=== PATIENT | female | born 1955 | race Caucasian/White ===

== ENCOUNTER → 2021-03-02 05:05 | Outpatient (CLI) | payer MEDICARE, MEDICAID, SELFPAY ==
[2021-03-02 19:23] LABS: SARS-CoV-2 RNA PCR Negative
== END ==
PROVIDERS: PCP Family Medicine; Visit Provider Internal Medicine Critical Care Medicine
DX: Z01.812 Encounter for preprocedural laboratory examination (principal); Z20.822 Contact with and (suspected) exposure to COVID-19
CPT/HCPCS: C9803; U0003; U0005

== ENCOUNTER 2021-03-05 09:00 | Outpatient (CLI) | payer MEDICARE, MEDICAID, SELFPAY ==
--- NOTE | 2021-03-19 14:44 | WPDSLEEPSTUD ---
Sleep Study Date of Study: 03/05/21 Ordering Provider: Radha Vieyra MD Interpreting Physician: Radha Vieyra MD Sleep Study Type: Polysomnogram Height: 1.57 m Weight: 165.561 kg Body Mass Index: 66.7 Neck Circumference (inches): 22.5 [place]: 7 Reason for Sleep Study history of ABY on CPAP, BiPAP; with poor tolerance 07/21/2002- BiPAP titration; optimal pressure 13/6 03/15/2002 - CPAP titration 13 cm 01/14/2002 - Basic study; RDI 38.9, minimum saturation 58%; BMI was 56.6. Sleep History Rosalinda Gant is a 65 year old female with a history of obstructive sleep apnea syndrome with poor tolerance for CPAP and BiPAP. Her main problem in her own words is her poorly functioning thyroid. She reports having gained a massive amount of weight. Her BMI is 66.8, higher than in 2001 when it was 56.6. In her questionnaire, she says that her doctors did not address the weight gain, instead placing her on levothyroxine with a decrease in her TSH but did not treat the underlying problem so she now says that she cannot lie flat in bed. For 30 years, she has slept upright in a recliner. She feels that she could often used a nap but does not always choose to take a nap. She says that she could not handle wearing CPAP or BiPAP. She does not awaken from sleep feeling short of breath. She does not awaken at night with heartburn, belching or coughing. She frequently snores and is constantly loud enough that others complain about it. She does not have trouble sleep with a cold, does not gasp for breath at night does not have breathing problems at night observed by others. She does not sweat excessively at night. She does not notice her heart pounding or beating irregularly at night. She rarely falls asleep during the day, never involuntarily, and never while driving. She does not fall asleep while exerting physical effort. there is no loss of muscle tone was strong emotion. There is no time date difficulty due to excessive sleepiness, she is her disabled. She does not feel paralyzed on waking or falling asleep. She rarely has vivid dreamlike scenes upon awakening or falling asleep. She does not feel afraid to go to sleep. She rarely has nightmares. She occasionally remembers her dreams. She frequently has racing thoughts, frequently feels sad, depressed, and anxious. Frequently she has muscular tension. She rarely notices parts of her body jerking. She rarely kicks at night and rarely has crawling or aching feelings in her legs at night. She occasionally has leg pain during the night. She does not have morning jaw pain. She constantly is bothered by pain during the day rarely is awakened by pain at night. She constantly wakes up feeling stiff in the morning, Frequently with sore or achy muscles and occasionally with pain in the spine and neck. She has concentration difficulties, memory problems, headaches, and depression. She takes sedatives. Normal bedtime is between 10:00 p.m. and 11:00 p.m. falling asleep within 30 minutes. She wakes during the night to use the bathroom. She wakes in the morning at 7:00 a.m.. On the weekends she may stay awake until midnight and wake at 8:00 a.m. She occasionally takes a nap and sometimes a short nap is refreshing. Habits: She quit tobacco 21 years ago. Caffeine 2 cups a day. No alcohol or recreational drugs. [facility] Past Medical History Medical History BMI 60.0-69.9, adult (~08/2014) CHF (congestive heart failure) Chronic venous stasis dermatitis of both lower extremities (~1999) Depression (~06/19/12) Dyslipidemia Essential tremor FH ischemic heart disease Mother had bypass surgery @ 78 y/o Generalized osteoarthrosis, involving multiple sites (~05/2012) History of endometritis (~1967) Impaired mobility and endurance (~04/01/13) electric w/c since 1999 per 10/10/2011 [facility] record Lymphedema of both lower extremities ABY (obstructive sleep apnea) P
[2021-03-19 15:43] VITALS: BMI 66.7
== END 2021-03-05 09:01 | disposition home or self-care (01) ==
LOC: ANHCSM 09:02
PROVIDERS: PCP Family Medicine; Visit Provider Internal Medicine Critical Care Medicine
DX: G47.33 Obstructive sleep apnea (adult) (pediatric) (principal); G47.34 Idiopathic sleep related nonobstructive alveolar hypoventilation
CPT/HCPCS: 95810

== ENCOUNTER 2021-09-07 09:16 | Outpatient (CLI) | payer MEDICARE, MEDICAID, SELFPAY ==
--- NOTE | 2021-09-07 10:09 | PCCARD ---
PATIENT ALIZA STANLEY HAD A APPOINTMENT ON 09/07/21 FOR A ECHOCARDIOGRAM. PATIENT ARRIVED IN A WHEELCHAIR. TOLD PATIENT WE WOULD NEED HER TO LAY DOWN ON STRETCHER FOR PROCEDURE. SHE TOLD US SHE COULD NOT DO SO BECAUSE SHE WOULD NOT BE ABLE TO BREATHE. TRIED TO DO PATIENTS ECHO WITH HER SITTING IN HER WHEELCHAIR. UNSUCCESSFUL ATTEMPT. TEXTED DR. HALL AND TOLD HIM OUTCOME OF TEST AND THAT WE CANCELLED PROCEDURE. HE SAID OK.
== END 2021-09-07 09:17 | disposition home or self-care (01) ==
PROVIDERS: PCP Family Medicine; Visit Provider Internal Medicine Cardiovascular Disease
DX: I50.9 Heart failure, unspecified (principal)
CPT/HCPCS: 99199

== ENCOUNTER 2021-09-26 09:15 | Outpatient (RCR) | payer MEDICARE, MEDICAID, SELFPAY ==
--- NOTE | 2021-07-04 10:08 | PTOPEVAL ---
PHYSICAL THERAPY EVALUATION AND PLAN OF CARE 07-04-21 Thank you for referring Rosalinda Gant to [facility].? She is scheduled to be seen for therapy? 3 x/week for 6 weeks. Please review, sign, date and return this plan of care GRETA. I agree with and certify that the following plan of care is medically necessary. Referring Physician Date Attending Provider: Ruth Miramontes MD *PT Outpatient Evaluation Document 07/04/21 08:55 ALLISON (Rec: 07/04/21 10:08 ALLISON [id number]) Outpatient Past Medical History Past Medical History Source of Past Medical History Patient Neurological History Hx Neurological Disorders No Significant History Cardiovascular History Hx Congestive Heart Failure Yes: meds Hx Hypercholesterolemia Yes: meds Hx Hypertension Yes: meds Respiratory History Hx Emphysema Yes: previous smoker; nebulizer and inhalers PRN Hx Other Respiratory Disorders Yes: cannot lie flat, have to sleep in recliner Gastrointestinal History Hx Cholecystectomy Yes Hx Gastric Bypass Surgery Yes: gastric sleeve; Hx Hernia Yes: surgery Genitourinary History Hx Other Genitourinary Disorders Yes: take diuretic for bladder /incontinent at time Musculoskeletal History Hx Arthritis Yes: throughout entire body- RA and OA in all joints,use w/ c due to this Endocrine History Hx Diabetes Yes: prediabetic on meds Hx Hypothyroidism Yes: meds HEENT History Hx Other HEENT Disorders Yes: sinus infections with weather changes, nose bleeds, Integumentary History Hx Other Skin Disorders Yes: chronic venous stasis dermitis both legs Reproductive History Hx Hysterectomy Yes: due to cancer, surgery only-no other treatment Other History Hx Cancer Yes: hysterectomy due to cancer Hx Other Medical Conditions Yes: 360# and height 5'2 Evaluation Information Problem Diagnosis B LE lymphedema Onset Oct 2020 Prior Level of Function Activity Level (Last 3 Months) Occupation disabled Activity of Daily Living Ability Needs Some Help Home Setting Environmental Barriers Ramp Living Situation Alone Support Available Hired Assistance Mobility Assistive Devices (Used Last 3 Wheelchair, Manual,Wheelchair, Months) Motorized Comments Additional Prior Level of Function have helper for assist with Comments bathing, dressing, home
--- NOTE | 2021-07-16 08:54 | PCPTNOTE ---
pt did not show for today's appt; I called her, she stated she did not feel well and did not have transportation to get here. Stated she did not have rides for this week set up yet--this week's appt canceled. Discussed [facility] or other public transportation to get to dept. She stated she will contact [facility] and try to come in next week. Discussed with her she needs to call and cancel if she is not able to come in. She stated she would call and let us know.
--- NOTE | 2021-08-01 10:34 | PCPTNOTE ---
pt called and canceled today's appt due to not feeling well.
--- NOTE | 2021-08-07 10:27 | PCPTNOTE ---
pt did not show for today's appointment; called pt and left a voice message for her;
--- NOTE | 2021-08-20 11:34 | PTOPEVAL ---
PHYSICAL THERAPY REEVALUATION AND UPDATED PLAN OF CARE 08-20-21 Refer to the clinical summary below for her status today, compared to the initial evaluation. Continue PT 3x/wk for 5 weeks. Thank you for referring Rosalinda Gant to [facility].? Please review, sign, date and return this updated plan of care [facility]. I agree with and certify that the following plan of care is medically necessary. Referring Physician Date Attending Provider: Ruth Miramontes MD Document 08/20/21 09:05 ALLISON (Rec: 08/20/21 10:04 ALLISON [id number]) Assessment Status Re-evaluation Pain Assessment Pain Scale Pain Scale Used Numeric (1 - 10) Self Report Pain Assessment Bilateral Leg(s) Reported Pain Level 5 Pain Description Aching,Burning,Shooting, Soreness Pain Frequency Chronic,Continuous Pain Score Pain Score 5: Self Report Interventions Used Interventions Used By Clinicians Education Lower Extremity Muscle Strength Testing General Lower Extremity Strength Gross Lower Extremity Strength -supine SLR R 10 /L 10 reps- due to pain in hip and back; hip abduction R 15/ L 7 reps -sit/stand pivot transfer indep, with increased time, labored and increased pain in back, unable to stand upright, trunk not extended; - supine/sit transfer indep, labored and increased time due to back and hip pain Lymphedema Evaluation Skin Inspection Location Left Lower Extremity,Right Lower Extremity Skin Observations Absence of Leg Hair,Dorsum Foot Swelling,Hyperkeratosis, Hyperpigmentation,Hyperplasia, Lipedema,Papillomas,Swollen, Squared off Toes Palpation Findings Cool Skin Temperature,Negative Stemmer Sign Tissue Texture Hard Lymphedema Stage II Skin Inspection Comment R LE: thigh with medial- distal thigh lobule, minimal redness, minimal papillomas lower leg with minimal redness over lower 1/2 of lower leg, medium redness over toes and dorsum of foot with minimal edema; minimal dry, flaking skin; small ridge of fibrotic tissue over distal- medial
--- NOTE | 2021-08-31 07:40 | PCPTNOTE ---
Pt called and stated she had a headache so bad she could not come in today for her appt . I told her I would let PT Sparkle know when she comes in and she will call her if needed to clarify any instructions for the weekend.
--- NOTE | 2021-08-31 11:55 | PCPTNOTE ---
pt called and canceled today's appt due to not feeling well--has not slept;
--- NOTE | 2021-09-03 12:53 | PCPTNOTE ---
PHYSICAL THERAPY PROGRESS REPORT 09-03-21 Ms. Gant has received a total of 17 PT sessions for B LE lymphedema, from July 04 to today. With today's circumferential measurements of her legs, from the bottom of her foot to 60 cm: R is 1005.5 cm and L is 993.9. Compared to the initial evaluation: R has increased by 3 cm and L has increased by 23.8 cm. During the course of her treatments, the measurements have varied, with the R down to 977.0 cm and L down to 970 cm. Her skin integrity has improved with the R LE- decreased dorsum of foot swelling, decreased redness, papillomas and fibrosis over lower leg, but continues to have fibrotic tissue over medial thigh. The L LE continues to have redness over dorsum of foot, lower leg,with papillomas.. The medial thigh has fibrotic tissue. She has been educated on lymphedema care, skin care, self manual lymph drainage and compression garments. A home intermittent compression pump has been delivered to her home and she is going to have education from [facility] for the use of it, later today. Rosalinda had multi-layer compression wraps on her R lower leg and has just obtained a compression garment for her R lower leg and foot. Today she was educated on its' application and use. Her family will assist her with it, because she cannot reach her lower leg and foot. Compression wraps will be initiated next week for her L lower leg. Continue PT services for lymphedema care: to reduce her L lower leg, obtain compression garment for her L LE and complete education for discharge and independent with care for her LE lymphedema, 3x/week for 3 weeks. Sparkle Jorge, PT, CLT
--- NOTE | 2021-09-03 13:05 | PCPTNOTE ---
canceled appointments for this week- Fri and . Pt is not able to make it here Fri due to having an ECHO scheduled. Wraps were not able to be initiated today for her L LE, per pt refusal, then if wrap her leg , she will not be able to maintain the wraps on her leg until Fri, so it is not feasible to have treatment for the remainder of this week. pt is to continue to to self MLD, has home intermittent compression pump now and compression garment for R LE. She is also to look into obtaining a compression bike short/caity. She wants to get an over the counter garment.
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
--- NOTE | 2021-09-24 10:47 | PTOPEVAL ---
PHYSICAL THERAPY RE-EVALUATION AND UPDATED PLAN OF CARE 09-24-21 Refer to the clinical summary below for her status today, compared to the last reevaluation. She continues to have issues with her leg strength and mobility due to back pain, leg pain, lymphedema over both legs and shortness of breath. Strength goals were not achieved. The goals were partially met for lymphedema--decreased redness and fibrotic tissue. PT is to continue 3x/wk for 3 weeks, to complete the wraps for her L lower leg and for her to obtain the compression garments for her L lower leg and foot, and the capris for thighs. Thank you for referring Rosalinda Gant to [facility].? Please review, sign, date and return this updated plan of care [facility]. I agree with and certify that the following plan of care is medically necessary. Referring Physician Date Attending Provider: Ruth Miramontes MD Document 09/24/21 08:45 ALLISON (Rec: 09/24/21 10:06 ALLISON [id number]) Assessment Status Re-evaluation Subjective Information Rosalinda reports: legs are Query Text:As Reported By Patient/ smaller in size; continue to Family have pain in legs and weakness in legs, can barely take any steps at home anymore; use w/ c all time; family and helper doing R leg garment and helping her; am able to wear her shoes again; still having problems with breathing-- short of breath, is a little better; am doing self massage as far down her leg as she can and helper doing lower leg; have been using home pump on R leg; garment is comfortable on R leg; going to order the caity in few days, when get paid/ Wed; Pain Assessment Timing of Pain Assessment Timing of Pain Assessment Assessment Pain Scale Pain Scale Used Numeric (1 - 10) Self Report Pain Assessment Bilateral Leg(s) Reported Pain Level 6 Pain Description Aching,Dull,Heavy,Soreness, Tender on Palpation Pain Frequency Chronic,Continuous Pain Score Pain Score 6: Self Report Interventions Used Interventions Used By Clinicians Education Lymphedema Evaluation Skin Inspection Location Left Lower Extremity,Right Lower Extremity Skin Observations Absence of Leg Hair,Dorsum Foot Swelling,Hemosiderin Staining,Hyperpigmentation, Hyperplasia,Lipedema,Obesity,
--- NOTE | 2021-09-28 08:15 | PCPTNOTE ---
This treatment is being continued on NEW visit number [id number]. Please see documentation on both accounts to view progress. Completed interventions, outcomes, and problems have been marked as Inactive to facilitate the copying of the Care plan routine for recurring accounts.
== END 2021-09-28 08:10 | disposition home or self-care (01) ==
LOC: ANHPT 09:15
PROVIDERS: PCP Family Medicine; Visit Provider Family Medicine
DX: I89.0 Lymphedema, not elsewhere classified (principal)
CPT/HCPCS: 29581; 97016; 97110; 97140; 97162

== ENCOUNTER 2021-10-05 09:15 | Outpatient (RCR) | payer MEDICARE, MEDICAID, SELFPAY ==
--- NOTE | 2021-09-28 08:18 | PCPTNOTE ---
This treatment is being continued from previous visit number V# [id number] Please see documentation on both accounts to view progress. Completed interventions, outcomes, and problems have been marked as Inactive to facilitate the copying of the Care plan routine for recurring accounts.
--- NOTE | 2021-10-01 09:27 | PCPTNOTE ---
Pt called and cancelled due to having a new aid today, want4d to reschedule. Called pt back and rescheduled to tomorrow at 1:30
--- NOTE | 2021-10-08 08:11 | PCPTNOTE ---
pt called and canceled today's appt due to caregiver issues;
--- NOTE | 2021-10-09 09:00 | PCPTNOTE ---
Called Rosalinda back from message received this morning. Rosalinda stated that her granddaughter was exposed to a classmate that now has covid. Granddaughter was with pt all weekend and morning prior to reports of covid. Pt is going o be tested but does not know when she can get to dr . Pt's appt was canceled tomorrow . We will call he [facility] on to about Friday's appt. Pt reports she is still compression wrapped and is supposed to get her garment today in the today. Pt will unwrap herself and knows how to apply garment . Pt already has the same type of garment on her right leg and has been applying correctly.
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
--- NOTE | 2021-10-24 13:52 | PCPTNOTE ---
called pt and left her a voice message---check to see if she had garment and how her legs were doing.
--- NOTE | 2021-11-12 10:19 | PCPTNOTE ---
PHYSICAL THERAPY DISCHARGE 11-12-21 Attending Provider: Ruth Miramontes MD Patient:Rosalinda Gant Date of :1955 Mrs. Gant has not returned for any further treatments since 10/05/2021, therefore she will be discharged at this time. She has received a total of 28 PT sessions, from July 04 to October 05, for the diagnosis of B LE lymphedema. With the last circumferential measurements of her legs, from bottom of foot up to 60 cm: R was 981.3 cm and L was 989.9 cm. Rosalinda is using [employer]aid Juxtafit Essentials lower leg compression garments and Solaris foot pieces to manage her lymphedema. The goals were not assessed. Thank you for referring Mrs. Gant to [facility]. Please review, sign, date and return this discharge summary [facility]. I have been updated about the patient's current status and I agree with discharge from the above service at this time. Referring Physician Date
== END 2021-11-12 13:18 | disposition home or self-care (01) ==
LOC: ANHPT 09:15
PROVIDERS: PCP Family Medicine; Visit Provider Family Medicine
DX: I89.0 Lymphedema, not elsewhere classified (principal)
CPT/HCPCS: 29581; 97140

== ENCOUNTER 2022-09-30 11:42 | Outpatient (CLI) | payer MEDICARE, MEDICAID, SELFPAY ==
[2022-10-01 10:20] LABS: Kit Draw Collected
== END 2022-09-30 11:43 | disposition home or self-care (01) ==
LOC: ANHGOSHLAB 11:48
PROVIDERS: PCP Family Medicine; Visit Provider Nurse Practitioner Family
DX: E03.9 Hypothyroidism, unspecified (principal); I10 Essential (primary) hypertension; E11.9 Type 2 diabetes mellitus without complications
CPT/HCPCS: 36415

== ENCOUNTER 2022-10-07 10:14 | Emergency (ER) | payer MEDICARE, MEDICAID, SELFPAY ==
[2022-10-07 10:25] VITALS: BP 166/81; PULSE 61; RESP 20; TEMP 37; O2SAT 96
--- NOTE | 2022-10-07 10:38 | ED.GENADULT ---
HPI - General Adult General Chief complaint: Skin/Abscess/Foreign Body <Rina Sanchez PA-C - Last Filed: 10/07/22 17:55> Stated complaint: allergic reaction <RICHARDSON Murphy Last Filed: 10/07/22 17:55> Time Seen by Provider: 10/07/22 10:16 <RICHARDSON Murphy Last Filed: 10/07/22 17:55> Source: patient and old records reviewed <RICHARDSON Murphy Last Filed: 10/07/22 17:55> Mode of arrival: EMS <RICHARDSON Murphy Last Filed: 10/07/22 17:55> Limitations: no limitations <RICHARDSON Murphy Last Filed: 10/07/22 17:55> History of Present Illness HPI narrative: Patient is a 67 y/o female who presents to the ED via EMS with possible allergic reaction. Patient reports she saw her doctor last week at which point she was complaining of left ear pain, left lateral and posterior neck pain. Also complaining of fevers and chills. She was thought to have an AOM and started on clindamycin. She also received her influenza and pneumonia vaccines at the office visit. The next day, she complained of diffuse itching of her body and persistent fevers. She was switched from clindamycin to doxycycline and also prescribed Cipro eardrops for potential allergic reaction. On Friday (3 days ago), patient developed a rash behind her left ear, extending into her scalp, which is extremely painful. Non-pruritic. She states it feels like electric shock sensations. The rash seemed to spread into her anterior neck/upper chest today, which prompted her presentation. Patient denies any difficulty breathing, chest pain, difficulty swallowing, vision changes, nausea, vomiting, abdominal pain. <RICHARDSON Murphy Last Filed: 10/07/22 17:55> Related Data Home medications: Home Medications Medication Instructions Recorded Confirmed albuterol sulfate 2.5 mg/0.5 mL 2.5 mg inhalation Q20M 10/22/19 09/30/22 solution for nebulization <Rina Sanchez PA-C - Last Filed: 10/07/22 17:55> Allergies/adverse reactions: Allergies Allergy/AdvReac Type Severity Reaction Status Date / Time Cephalosporins Allergy Mild Swelling Verified 10/07/22 10:28 citalopram Allergy Mild Hives Verified 10/07/22 10:28 latex Allergy Mild LOCALIZED Verified 10/07/22 10:28 RASH/ITCHING. Sulfa (Sulfonamide Allergy Mild Fever Verified 10/07/22 10:28 Antibiotics) triamterene Allergy Unknown unknown Verified 10/07/22 10:28 clarithromycin [From Biaxin] Allergy Fever and Verified 10/07/22 10:28 rash mold Allergy Unknown face Uncoded 10/07/22 10:28 swelling <Rina Sanchez PA-C - Last Filed: 10/07/22 17:55> Review of Systems Review of Systems: CONSTITUTIONAL: Reports fevers. EYES: Denies visual changes, redness, or discharge. CARDIOVASCULAR: Denies chest pain. RESPIRATORY: Denies dyspnea. GASTROINTESTINAL: Denies abdominal pain, nausea, vomiting, or diarrhea. SKIN: Reports painful rash to L posterior ear/scalp/neck/into chest. Denies pruritus. <Rina Sanchez PA-C - Last Filed: 10/07/22 17:55> All systems reviewed & are unremarkable except as noted in HPI and below <Rina Sanchez PA-C - Last Filed: 10/07/22 17:55> [facility] Past Medical History Medical History: Medical History BMI 60.0-69.9, adult (~08/2014) CHF (congestive heart failure) Chronic venous stasis dermatitis of both lower extremities (~1999) Depression (~06/19/12) Dyslipidemia Essential tremor FH ischemic heart disease Mother had bypass surgery @ 78 y/o Generalized osteoarthrosis, involving multiple sites (~05/2012) History of endometritis (~1967) Impaired mobility and endurance (~04/01/13) electric w/c since 1999 per 10/10/2011 [facility] record Lymphedema of both lower extremities ABY (obstructive sleep apnea) Prediabetes Right heart failure (~06/19/12) per [facility] record Stopped smoking with
[2022-10-07 12:11] VITALS: BP 153/75; PULSE 59; RESP 15; O2SAT 95
[2022-10-07 13:22] VITALS: BP 151/71; PULSE 61; RESP 15; O2SAT 99
== END 2022-10-07 13:23 | disposition home or self-care (01) ==
PROVIDERS: Emergency Provider Emergency Medicine; PCP Family Medicine
DX: B02.9 Zoster without complications (principal); I50.9 Heart failure, unspecified; E78.5 Hyperlipidemia, unspecified; I87.2 Venous insufficiency (chronic) (peripheral); G47.33 Obstructive sleep apnea (adult) (pediatric); R73.03 Prediabetes; M19.90 Unspecified osteoarthritis, unspecified site; Z87.891 Personal history of nicotine dependence; Z98.84 Bariatric surgery status; Z90.710 Acquired absence of both cervix and uterus
CPT/HCPCS: 99283

== ENCOUNTER 2023-06-16 13:42 | Outpatient (NON) | payer MEDICARE, MEDICAID, SELFPAY | END 2023-06-16 13:43 | disposition home or self-care (01) | LOC: ANHGOSHLAB 13:46 | PROVIDERS: PCP Family Medicine; Visit Provider Nurse Practitioner Family | DX: I87.2 Venous insufficiency (chronic) (peripheral) (principal) | CPT/HCPCS: 87070; 87075; 87076; 87077; 87147; 87181; 87186; 87205 ==

== ENCOUNTER 2023-11-10 10:54 | Inpatient (IN) | payer MEDICARE, MEDICAID, SELFPAY ==
[2023-11-10] VITALS (16 sets, daily range): BP systolic 117–161; BP diastolic 45–90; PULSE 58–80; RESP 16–24; TEMP 36.5–36.8; O2SAT 91–99; BMI 64.8
--- NOTE | ~2023-11-10 | US_ITS ---
EXAMINATION: US venous doppler [facility] DATE: 11/11/2023 15:57 INDICATION: Lower limb edema. TECHNIQUE: Grayscale ultrasound images without and with compression and Doppler ultrasound images of the bilateral lower extremity veins were obtained. COMPARISON: Ultrasound 07/09/2017 FINDINGS: The visualized portions of right common femoral vein, profunda (deep) femoral vein, femoral vein, pop liteal vein, and greater saphenous vein outflow are patent. The calf veins are not well visualized. The visualized portions of left common femoral vein, profunda femoral vein, femoral vein, popliteal v ein, and greater saphenous vein outflow are patent. The calf veins are not well visualized. IMPRESSION: 1. No deep venous thrombosis. Bilateral calf veins not well visualized. Reviewed, dictated and finalized at location A. GER MBA
--- NOTE | ~2023-11-10 | XR_ITS ---
Portable chest x-ray Comparison: 11/12/2023 Clinical History: Covid Findings: There is left lower lobe consolidation and possible small left pleural effusion. There is minimal haziness right lung base. Cardiomediastinal silhouette is stable. Bones and soft tissues are unremarkable. Impression: Left lower lobe consolidation could reflect atelectasis or pneumonia. Correlate clinically. Possible minimal left pleural effusion. Minimal right basilar haziness, nonspecific. Reviewed, dictated and finalized at location . MERCE MANAGER Impression: Left lower lobe consolidation could reflect atelectasis or pneumonia. Correlate clinically. Possible minimal left pleural effusion. Minimal right basilar haziness, nonspecific.
--- NOTE | ~2023-11-10 | XR_ITS ---
EXAMINATION: XR chest 1V portable INDICATION: Shortness of breath and cough TECHNIQUE: Portable AP chest at 1414 hours COMPARISON: 09/26/2012 FINDINGS: Cardiomegaly is noted. There is a mild diffuse interstitial pattern. No pleural effusion or pneumothorax. There is osteoarthritis of the shoulders. IMPRESSION: 1. Cardiomegaly with mild pulmonary edema. Reviewed, dictated and finalized at location B. OGRAPH DESIGNER
--- NOTE | ~2023-11-10 | XR_ITS ---
EXAMINATION: XR chest 1V portable INDICATION: Fluid overload TECHNIQUE: Portable AP chest at 0757 hours COMPARISON: 11/14/2023 FINDINGS: There is a small, stable left pleural effusion with left basilar airspace opacity. No pneum othorax is identified. The cardiomediastinal silhouette is stable. Cardiomegaly is noted. IMPRESSION: 1. Small left pleural effusion, stable. 2. Left basilar airspace opacity, consistent with pneumonia and/or atelectasis. Reviewed, dictated and finalized at location B. T METAL LAY OUT WORKER
--- NOTE | ~2023-11-10 | XR_ITS ---
EXAMINATION: XR chest 1V portable DATE: 11/12/2023 09:15 INDICATION: Hypoxic respiratory failure. COVID-19 positive. TECHNIQUE: A single frontal view of the chest was obtained. COMPARISON: Chest single view 11/10/2023, chest 2 views 09/26/2012 FINDINGS: There are airspace opacities in the perihilar regions and left mid and lower lung zones. No pleural effusion or pneumothorax. Cardiomegaly is noted. IMPRESSION: 1. Airspace opacities in the perihilar regions and left mid and lower lung zones, consistent with pul monary edema and atelectasis versus atypical pneumonia. 2. Cardiomegaly. Reviewed, dictated and finalized at location A. MICS AX DEVELOPER IMPRESSION: 1. Airspace opacities in the perihilar regions and left mid and lower lung zone s, consistent with pulmonary edema and atelectasis versus atypical pneumonia. 2. Cardiomegaly.
--- NOTE | ~2023-11-10 | US_ITS ---
EXAMINATION: US venous doppler [facility] DATE: 11/12/2023 15:18 INDICATION: Upper extremity swelling TECHNIQUE: Grayscale ultrasound images without and with compression and Doppler ultrasound images of the bilateral upper extremity veins were obtained. COMPARISON: None. FINDINGS: The right internal jugular vein, subclavian vein, axillary vein, brachial veins, basilic vein, cephal ic vein, radial vein, and ulnar vein are patent. The left internal jugular vein, subclavian vein, axillary vein, brachial veins, basilic vein, cephali c vein, radial vein, and ulnar vein are patent. A left upper extremity PICC is noted. IMPRESSION: 1. No evidence of deep venous thrombosis. Reviewed, dictated and finalized at location B. TOR CRANE ENGINEER
--- NOTE | 2023-11-10 11:21 | ECG_ITS ---
Measurements Intervals [place] Rate: 60 P: 29 NE: 125 QRS: -36 QRSD: 93 T: 65 QT: 424 QTc: 425 Interpretive Statements SINUS RHYTHM WITH OCCASIONAL ECTOPIC PREMATURE COMPLEXES INDETERMINATE AXIS LOW QRS VOLTAGE IN PRECORDIAL LEADS [QRS DEFLECTION < 1.0 mV IN CHEST LEADS] POSSIBLE ANTERIOR MYOCARDIAL INFARCTION , PROBABLY OLD [30 ms Q WAVE IN V3/V4, OR R < 0.2 mV IN V4] ABNORMAL ECG NO PREVIOUS ECG AVAILABLE FOR COMPARISON Electronically Signed On 11-10-2023 12:51:29 [employer] by Quang Cruz M.D.
[2023-11-10 12:04] LABS: Hematocrit 46.6 % (37.0-47.0); Hemoglobin 12.2 g/dL (12.0-15.0); Mean Corpuscular HGB Conc 26.2 g/dl (32-36); Mean Corpuscular Hemoglobin 21.2 pg (26-34); Mean Corpuscular Volume 80.9 fl (80-100); Mean Platelet Volume 10.9 fl (7.4-10.4); Platelet Count Result 182 k/mm3 (150-375); Red Blood Count 5.76 M/mm3 (4.2-5.4); Red Cell Distribution Width 20.3 % (11.5-14.5); White Blood Count 4.2 K/mm3 (4.5-10.0)
[2023-11-10 12:18] LABS: Alanine Aminotransferase 20 U/L (6-35); Albumin Level 3.6 g/dL (3.5-5.1); Alkaline Phosphatase 65 U/L (38-126); Anion Gap 5 mmol/L (8-16); Aspartate Amino Transferase 47 U/L (14-36); Bilirubin,Total 1.4 mg/dL (0.2-1.3); Blood Urea Nitrogen 21 mg/dL (7-17); Calcium 8.2 mg/dL (8.4-10.2); Carbon Dioxide 29 mmol/L (22-30); Chloride 103 mmol/L (98-107); Estimated CRCL calculation 100 ml/min; Estimated Glomerular Filt Rate > 60; Glucose 85 mg/dL (65-110); Potassium 5.2 mmol/L (3.4-5.0); Sodium 137 mmol/L (137-145)
[2023-11-10] MEDS: ACETAMINOPHEN 325 MG TABLET 650 MG PO (12:35)
[2023-11-10 12:44] LABS: Basophils Percent Auto 0.7 % (0.2-1.2); Lymphocytes Percent Auto 28.7 % (18.3-44.2); Monocytes Percent Auto 11.1 % (2.6-8.5); Neutrophils Percent Auto 59.3 % (45.5-73.1)
[2023-11-10 12:45] LABS: Immature Granulocyte Absolute 0.01 K/mm3 (0.00-0.031); Immature Granulocyte Percent A 0.2 % (0-0.5); Lymphocytes Absolute Auto 1.19 K/mm3 (0.9-3.2); Monocytes Absolute Auto 0.5 K/mm3 (0.1-0.6); Neutrophils Absolute Auto 2.5 K/mm3 (1.3-6.7)
[2023-11-10 12:46] LABS: Burr Cells 2+ (NORMAL); Platelet Estimate Adequate (Adequate); Schistocytes None Seen (NORMAL)
--- NOTE | 2023-11-10 14:22 | ED.GENADULT ---
HPI - General Adult General Chief complaint: Shortness of Breath/Dyspnea Stated complaint: SOB, weakness Time Seen by Provider: 11/10/23 10:59 History of Present Illness HPI narrative: Patient is a 68-year-old female with recent diagnosis of COVID-19 who presents ER with shortness of breath. Found to be hypoxic in the 70s upon arrival via EMS. No chest pain or chest pressure. Reports she has been having sinus congestion sore throat productive cough. No nausea or vomiting. No orthopnea. Denies alleviating factors Other than oxygen. Related Data Allergies Allergy/AdvReac Type Severity Reaction Status Date / Time Cephalosporins Allergy Mild Swelling Verified 11/10/23 18:22 citalopram Allergy Mild Hives Verified 11/10/23 18:22 latex Allergy Mild LOCALIZED Verified 11/10/23 18:22 RASH/ITCHING. Sulfa (Sulfonamide Allergy Mild Fever Verified 11/10/23 18:22 Antibiotics) triamterene Allergy Unknown unknown Verified 11/10/23 18:22 clarithromycin [From Biaxin] Allergy Fever and Verified 11/10/23 18:22 rash mold Allergy Unknown face Uncoded 11/10/23 18:22 swelling Review of Systems Review of Systems: All systems reviewed & are unremarkable except as noted in HPI and below Constitutional: Constitutional: Reports chills, Reports fatigue and Reports fever(s) ENT: Reports nasal congestion and Reports sore throat Cardiovascular: Cardiovascular: Reports no additional cardiovascular complaints Respiratory: Respiratory: Reports cough, Reports dyspnea and Denies wheezing Gastrointestinal: Gastrointestinal: Reports no additional gastrointestinal complaints Genitourinary: Genitourinary: Reports no additional female genitourinary complaints [facility] Past Medical History Medical History BMI 60.0-69.9, adult (~08/2014) CHF (congestive heart failure) Chronic venous stasis dermatitis of both lower extremities (~1999) Depression (~06/19/12) Dyslipidemia Essential tremor FH ischemic heart disease Mother had bypass surgery @ 78 y/o Generalized osteoarthrosis, involving multiple sites (~05/2012) History of endometritis (~1967) Impaired mobility and endurance (~04/01/13) electric w/c since 1999 per 10/10/2011 [facility] record Lymphedema of both lower extremities ABY (obstructive sleep apnea) Prediabetes Right heart failure (~06/19/12) per [facility] record Stopped smoking with greater than 30 pack year history stopped 1998 per 10/10/2011 [facility] record Unspecified urinary incontinence (~10/11/16) Surgical History Surgical History History of bariatric surgery (~01/08/12) per record: 09/26/2011: 330# prior to surgery @ [facility]: Dr. Stevo Davis History of hysterectomy for cancer (~1990) History of sleeve gastrectomy 2012 History of umbilical hernia repair 2006 S/P cholecystectomy (~2004) S/P T&A (status post tonsillectomy and adenoidectomy) (~1973) Family History Family History (Updated 11/10/23 @ 18:05 by Chely Anguiano, RN) Mother Family history of heart disease in male family member before age 55 Depression Family history of diabetes mellitus in first degree relative Family history of malignant neoplasm of urinary bladder Family history of coronary artery disease Family history of chronic obstructive pulmonary disease Kidney malignancy Father Polio Esophageal cancer Other Diabetes mellitus Family history of cardiovascular disease Social History Social History (Updated 06/16/23 @ 11:14 by Swati Willett) Social History: Caffeine-decaf coffee Smoking packs per day: 1 Smoking cigarettes per day: 20.0 Years smoked: 30 Smoking pack-years: 30.00 Smoking status: Former smoker Tobacco type: cigarettes Second hand tobacco smoke exposure: Yes (states once a month) Smoking end date: 12/01/00 Alcohol intake: never Substance use: never Substance use type: does not
--- NOTE | 2023-11-10 15:01 | PC.NURSE ---
Pt states she is breathing & resting better.
[2023-11-10 15:17] LABS: NT Pro B Type Natriuretic Pept 221 pg/mL (19.9-100)
--- NOTE | 2023-11-10 16:26 | PC.NURSE ---
Pt refusing Lasix at this time. Encourage to take it instructed will help with SOB.
[2023-11-10] MEDS: FUROSEMIDE INJ 40 MG/4 ML VIAL IV PUSH (16:47)
--- NOTE | 2023-11-10 16:50 | PC.NURSE ---
This patient, Rosalinda Gant, was admitted to [facility] Surg Room 300-01. Patient/family oriented to hospital policies and general routines including ID bracelet, bed and alarms, visiting hours, pain management, procedures, bathroom and other care routines, personal items, smoking policy, room service/diet, and visiting hours. Information on how to activate the Rapid Response Team has been discussed. Patient/Family are encouraged to report perceived risks to care and to ask questions if they do not understand what they are told or what they should do.
--- NOTE | 2023-11-10 17:23 | PM.IMHP ---
H&P: HPI History of Present Illness Date/Time: 11/10/23 16:30 Chief Complaint: Shortness of breath. Narrative: This is a 68-year-old female with History of hypertension, hyperlipidemia, congestive heart failure, chronic obstructive pulmonary disease, obstructive sleep apnea, and morbid obesity who presented to the emergency department via EMS from home for evaluation of shortness of breath. The patient provides the following history. She has not been feeling well for couple of weeks and tested positive for COVID on 10/31/2023. She continues to have symptoms to include sinus congestion, sore throat, productive cough, weakness, and shortness of breath. She has been using a nebulizer at home without much benefit. Today she reportedly had an SpO2 in the 70s on EMS arrival and on arrival to the ED she received a nebulizer treatment and 6 mg of dexamethasone with improvement in her work of breathing. She reports feeling a lot better at the time my evaluation. She denies fever, chest pain, pleuritic pain, nausea, vomiting, and diarrhea. She does however report having a poor appetite as nothing sounds or tastes good since being diagnosed with COVID. Review of Systems Review of Systems: Twelve systems were reviewed. She has chronic lymphedema and stasis dermatitis. She denies calf pain and tenderness. No history of venous thromboembolism. She is essentially bedbound. But the of the year she is hoping to move to assisted living at [facility]. She denies dysuria but does report discomfort in the perineal area because it is raw. She does not think she has any open wounds. Except as documented, all other systems were reviewed and are negative. [facility] Past Medical History Medical History (Updated 11/10/23 @ 22:59 by Sydnie Mora PA-C) BMI 60.0-69.9, adult (~08/2014) CHF (congestive heart failure) Chronic obstructive pulmonary disease Chronic venous stasis dermatitis of both lower extremities (~1999) Congestive heart failure Depression (~06/19/12) Dyslipidemia Essential tremor FH ischemic heart disease Mother had bypass surgery @ 78 y/o Generalized osteoarthrosis, involving multiple sites (~05/2012) History of endometritis (~1967) Impaired mobility and endurance (~04/01/13) electric w/c since 1999 per 10/10/2011 [facility] record Lymphedema of both lower extremities ABY (obstructive sleep apnea) Prediabetes Right heart failure (~06/19/12) per [facility] record Stopped smoking with greater than 30 pack year history stopped 1998 per 10/10/2011 [facility] record Unspecified urinary incontinence (~10/11/16) Surgical History Surgical History History of bariatric surgery (~01/08/12) per record: 09/26/2011: 330# prior to surgery @ [facility]: Dr. Stevo Davis History of hysterectomy for cancer (~1990) History of sleeve gastrectomy 2012 History of umbilical hernia repair 2007 S/P cholecystectomy (~2004) S/P T&A (status post tonsillectomy and adenoidectomy) (~1973) Family History Family History Mother Family history of heart disease in male family member before age 55 Depression Family history of diabetes mellitus in first degree relative Family history of malignant neoplasm of urinary bladder Family history of coronary artery disease Family history of chronic obstructive pulmonary disease Kidney malignancy Father Polio Esophageal cancer Other Diabetes mellitus Family history of cardiovascular disease Social History Social History (Updated 11/10/23 @ 22:56 by Sydnie Mora PA-C) Social History: Surrogate medical decision maker: Clay Gant, daughter. Code status: Smoking packs per day: 1 Smoking cigarettes per day: 20.0 Years smoked: 30 Smoking pack-years: 30.00 Smoking status: Former smoker Tobacco type: cigarettes Second hand tobacco smoke exposure: Yes (states o
[2023-11-10 21:09] LABS: Glucose Point of Care 178 mg/dl (65-105)
[2023-11-10 23:34] LABS: Potassium 4.2 mmol/L (3.4-5.0)
[2023-11-10 23:53] LABS: D Dimer 1.04 ug/mL (<0.48)
[2023-11-11] VITALS (20 sets, daily range): BP systolic 112–153; BP diastolic 48–63; PULSE 49–65; RESP 13–24; TEMP 36.1–36.6; O2SAT 92–98
[2023-11-11] MEDS: REMDESIVIR 200 MG/NS 250 ML 200 MG/250 ML BAG 250 MG IVPB (00:15)
[2023-11-11] MEDS: IPRATROPIUM BR 0.02% INH SOLN 0.5 MG/2.5 ML VIAL INHALATION ×3 (02:43→13:24)
[2023-11-11] MEDS: ALBUTEROL SULFATE NEB 2.5 MG/3 ML INH INHALATION ×3 (02:43→13:24)
[2023-11-11] MEDS: LEVOTHYROXINE SODIUM 100 MCG TABLET 200 MCG PO (05:13)
[2023-11-11] MEDS: LEVOTHYROXINE SODIUM 88 MCG TABLET PO (05:13)
[2023-11-11 07:44] LABS: Hematocrit 45.7 % (37.0-47.0); Hemoglobin 11.9 g/dL (12.0-15.0); Immature Platelet Fraction Pct 8.5 % (0.9-11.2); Mean Corpuscular Hemoglobin 21.2 pg (26-34); Mean Corpuscular Volume 81.3 fl (80-100); Mean Platelet Volume 10.7 fl (7.4-10.4); Platelet Count Result 192 k/mm3 (150-375); Red Blood Count 5.62 M/mm3 (4.2-5.4); Red Cell Distribution Width 19.8 % (11.5-14.5); White Blood Count 2.3 K/mm3 (4.5-10.0)
[2023-11-11 07:53] LABS: Alanine Aminotransferase 18 U/L (6-35); Albumin Level 3.3 g/dL (3.5-5.1); Alkaline Phosphatase 72 U/L (38-126); Anion Gap 4 mmol/L (8-16); Aspartate Amino Transferase 23 U/L (14-36); Bilirubin,Total 0.6 mg/dL (0.2-1.3); Blood Urea Nitrogen 20 mg/dL (7-17); CRP 4.3 mg/dL (<1.0); Calcium 8.2 mg/dL (8.4-10.2); Carbon Dioxide 38 mmol/L (22-30); Chloride 98 mmol/L (98-107); Estimated CRCL calculation 97 ml/min; Estimated Glomerular Filt Rate > 60; Glucose 130 mg/dL (65-110); Magnesium 2.1 mg/dL (1.6-2.3); Potassium 4.2 mmol/L (3.4-5.0); Sodium 140 mmol/L (137-145)
[2023-11-11] MEDS: ACETAMINOPHEN 325 MG TABLET 650 MG PO (09:33)
[2023-11-11] MEDS: PROPRANOLOL HCL 20 MG TABLET PO (09:34)
[2023-11-11] MEDS: ENOXAPARIN 40 MG/0.4 ML SYRINGE SUB-Q (09:34)
--- NOTE | 2023-11-11 10:47 | PM.IMPN ---
Progress Note: A&P Assessment and Plan (1) Acute respiratory failure with hypoxia: Code(s): J96.01 - Acute respiratory failure with hypoxia Status: Acute Assessment and Plan: 11/11: Patient usually does not wear oxygen but she is requiring 7 L high-flow nasal cannula for adequate saturations. COVID positive since 10/31/23. (2) COVID-19: Code(s): U07.1 - COVID-19 Status: Acute Assessment and Plan: Covid positive since 10/31/23 but now hypoxic and worsening, Remdesivir and dexamethasone on board. D-Dimer positive but patient unable to tolerate or fit in CT scan, not able to do VQ scan. (3) Chronic venous stasis dermatitis of both lower extremities: Onset Date: ~1999 Code(s): I87.2 - Venous insufficiency (chronic) (peripheral) Status: Acute Assessment and Plan: Significant swelling/lymphedema, unable to ambulate (4) Chronic obstructive pulmonary disease: Code(s): J44.9 - Chronic obstructive pulmonary disease, unspecified Status: Acute Assessment and Plan: Continue nebs (5) Congestive heart failure: Qualifiers: Heart failure type: diastolic Heart failure chronicity: acute on chronic Qualified Code(s): I50.33 - Acute on chronic diastolic (congestive) heart failure Code(s): I50.9 - Heart failure, unspecified Status: Acute Assessment and Plan: Echo ordered. Grade 1 diastolic dysfunction. BID diuresis Plan Covid supportive care Diuresis Titrate oxygen When stable, PT/OT need ordered Time Spent With Patient Time with patient: Greater than 35 minutes Subjective Date/time seen: 11/11/23 10:47 Interval history: H&P 11/10: This is a 68-year-old female with? History of hypertension, hyperlipidemia, congestive heart failure, chronic obstructive pulmonary disease, obstructive sleep apnea, and morbid obesity who presented to the emergency department via EMS from home for evaluation of shortness of breath. The patient provides the following history. She has not been feeling well for couple of weeks and tested positive for COVID on 10/31/2023. She continues to have symptoms to include sinus congestion, sore throat, productive cough, weakness, and shortness of breath. She has been using a nebulizer at home without much benefit. Today she reportedly had an SpO2 in the 70s on EMS arrival and on arrival to the ED she received a nebulizer treatment and 6 mg of dexamethasone with improvement in her work of breathing. She reports feeling a lot better at the time my evaluation. She denies fever, chest pain, pleuritic pain, nausea, vomiting, and diarrhea. She does however report having a poor appetite as nothing sounds or tastes good since being diagnosed with COVID. 11/11: Patient still having significant dyspnea with any activity. She is on high flow nasal cannula. Patient reports she sleeps in a recliner at home and transfers to a bedside commode right next to her chair. Patient reports that her home assistance services were placed on hold due to recent Covid diagnosis so she has not had any help at home. Her children come by very briefly but don't help with skin care in the perineum so she is getting excoriated. She also reports EMS may have caused a skin tear to left leg with rolling her. Patient will need SNF then possibly permanent placement upon stability for discharge. Commercial Collections Driver made aware of anticipated needs. Exam Narrative: General: Chronically and acutely ill-appearing female laying in bed in moderate respiratory distress HEENT: PERRL, EOMI. Sclera anicteric. Oral mucosa moist. Oropharynx is crowded and poorly visualized. Neck: Supple. Exam limited due to neck circumference. Respiratory: Respirations are somewhat labored. Lung sounds are diminished with fine crackles at the bases. Tachypnea noted with end expiratory grunt at times Cardiovascular: Regular rate and rhythm with S1-S2. Gastrointestinal: Abdom
[2023-11-11] MEDS: PERFLUTREN LIPID MICROSPHERES 1.5 ML VIAL DILUTED TO 10 ML TOTAL VOLUME IV PUSH (11:00)
[2023-11-11] MEDS: FUROSEMIDE INJ 40 MG/4 ML VIAL IV PUSH (18:42)
[2023-11-11] MEDS: REMDESIVIR 100 MG/NS 250 ML 100 MG/250 ML BAG 250 MG IVPB (21:24)
[2023-11-11] MEDS: ENOXAPARIN 80 MG/0.8 ML SYRINGE 160 MG SUB-Q (21:24)
--- NOTE | 2023-11-11 21:51 | PC.NURSE ---
Propranolol held per order parameters. Pt's HR 49. STERILE PROCESSING TECHNOLOGIST Melva notified. No further orders.
--- NOTE | 2023-11-11 23:02 | ECHO_ITS ---
Patient Info Name: Rosalinda Gant Age: 68 years : 1955 Gender: Female Ht: 62 in Wt: 354 lbs BSA: 2.77 m2 HR: 52 bpm BP: 147 / 63 mmHg Heart Rhythm: Bradycardia Exam Date: 11/11/2023 10:39 AM Exam Location: Echo Lab Patient Status: Inpatient Admit Date: 11/10/2023 Staff Ordering Physician: Sydnie Mora PA-C Attending Provider: Shiva Robb MD Referring Physician: Abby DONG; Exam Type: CA echo doppler color flow Study Info Indications - cardiomegaly Complete two-dimensional, color flow and Doppler transthoracic echocardiogram is performed with contrast to opacify the left ventricle and to improve the deliniation of the left ventricle endocardial borders. Contrast/Agitated Saline Contrast/Ag. Saline: Definity Amount: 1.50 ml Existing IV Access: Yes IV Access Condition: patent with no signs of infiltration Summary 1. Left ventricular chamber dimension is normal. 2. Left ventricular systolic function is normal, estimated at 65-70%. 3. There is moderately increased left ventricular wall thickness. 4. The left ventricular diastolic function is grade I diastolic dysfunction. 5. Left atrial chamber dimension is mildly enlarged. 6. There is mild mitral valve regurgitation. 7. There is mild aortic valve sclerosis. Left Ventricle Left ventricular chamber dimension is normal. Left ventricular systolic function is normal, estimated at 65-70%. There is moderately increased left ventricular wall thickness. The left ventricular diastolic function is grade I diastolic dysfunction. Right Ventricle Right ventricular chamber dimension is normal. Right ventricular systolic function is normal. Left Atria Left atrial chamber dimension is mildly enlarged. Right Atria Right atrial chamber dimension is normal. Atrial Septum Intact interatrial septum visualized by color flow imaging. Aortic Valve The aortic valve is trileaflet. There is mild aortic valve sclerosis. There is no aortic valve stenosis. There is trace aortic valve regurgitation. Pulmonic Valve The pulmonic valve is normal. There is no pulmonic valve stenosis. There is trace pulmonic regurgitation. Mitral Valve The mitral valve has normal leaflets. There is no mitral valve stenosis. There is mild mitral valve regurgitation. Tricuspid Valve The tricuspid valve leaflets are normal. There is no significant tricuspid valve stenosis. There is trace tricuspid valve regurgitation. Pericardium/Pleural The pericardium appears normal. There is no pericardial effusion. Inferior Vena Cava Dilated inferior vena cava with <50% collapse upon inspiration consistent with elevated right atrial pressure, 10 mmHg. Aorta The aortic root size at the sinus of Valsalva is normal. Left Ventricular Outflow Tract Name Value Normal LVOT 2D LVOT Diameter 2.2 cm LVOT Doppler LVOT Peak Gradient 5 mmHg LVOT Mean Gradient 3 mmHg LVOT VTI 32 cm LVOT VTI/AV VTI Ratio 0.9 LVOT Stroke Volume 117 ml LVOT CO 6.1 l/min
[2023-11-12] VITALS (25 sets, daily range): BP systolic 115–148; BP diastolic 51–77; PULSE 40–60; RESP 13–28; TEMP 36.4–37.5; O2SAT 86–96
--- NOTE | 2023-11-12 01:36 | PCRCNOTE ---
Window of time for administration has passed. See next scheduled administration.
[2023-11-12] MEDS: IPRATROPIUM BR 0.02% INH SOLN 0.5 MG/2.5 ML VIAL INHALATION ×4 (02:45→20:34)
[2023-11-12] MEDS: ALBUTEROL SULFATE NEB 2.5 MG/3 ML INH INHALATION ×2 (02:45→08:25)
[2023-11-12] MEDS: LEVOTHYROXINE SODIUM 100 MCG TABLET 200 MCG PO (06:05)
[2023-11-12] MEDS: LEVOTHYROXINE SODIUM 88 MCG TABLET PO (06:05)
[2023-11-12 07:23] LABS: Basophils Percent Auto 0.2 % (0.2-1.2); Hematocrit 45.2 % (37.0-47.0); Hemoglobin 11.7 g/dL (12.0-15.0); Immature Granulocyte Absolute 0.02 K/mm3 (0.00-0.031); Immature Granulocyte Percent A 0.3 % (0-0.5); Lymphocytes Absolute Auto 1.05 K/mm3 (0.9-3.2); Mean Corpuscular HGB Conc 25.9 g/dl (32-36); Mean Corpuscular Hemoglobin 21.2 pg (26-34); Mean Corpuscular Volume 81.9 fl (80-100); Mean Platelet Volume 10.9 fl (7.4-10.4); Monocytes Absolute Auto 0.7 K/mm3 (0.1-0.6); Neutrophils Absolute Auto 4.4 K/mm3 (1.3-6.7); Neutrophils Percent Auto 71.5 % (45.5-73.1); Platelet Count Result 208 k/mm3 (150-375); Red Blood Count 5.52 M/mm3 (4.2-5.4); Red Cell Distribution Width 19.6 % (11.5-14.5); White Blood Count 6.2 K/mm3 (4.5-10.0)
[2023-11-12 07:30] LABS: Alanine Aminotransferase 16 U/L (6-35); Albumin Level 3.3 g/dL (3.5-5.1); Alkaline Phosphatase 63 U/L (38-126); Aspartate Amino Transferase 24 U/L (14-36); Bilirubin,Total 0.5 mg/dL (0.2-1.3); Blood Urea Nitrogen 25 mg/dL (7-17); Calcium 8.3 mg/dL (8.4-10.2); Carbon Dioxide > 40 mmol/L (22-30); Chloride 99 mmol/L (98-107); Estimated CRCL calculation 97 ml/min; Estimated Glomerular Filt Rate > 60; Glucose 90 mg/dL (65-110); Magnesium 2.2 mg/dL (1.6-2.3); Potassium 4.3 mmol/L (3.4-5.0); Sodium 142 mmol/L (137-145)
[2023-11-12 07:34] LABS: INR 1.1; Prothrombin Time 14.5 Seconds (11.1-14.7)
[2023-11-12] MEDS: FUROSEMIDE INJ 40 MG/4 ML VIAL IV PUSH ×2 (08:53→17:07)
[2023-11-12] MEDS: ENOXAPARIN 80 MG/0.8 ML SYRINGE 160 MG SUB-Q ×2 (08:53→21:24)
[2023-11-12 09:02] LABS: Hemoglobin A1C 6.5 % (<5.7)
[2023-11-12 09:02] LABS: Base Excess ABG 12.7 mEq/l (+/-2.0); Fractional Inspired Oxygen 56 %; HCO3 ABG 41.3 mEq/l (22.0-26.0); Oxygen Content ABG 16.7 %vol (16.0-22.0); Oxygen Saturation ABG 93.4 % (95.0-100.0); Oxyhemoglobin 93.5 % THb (90.0-100.0); PO2 ABG 72.9 mmHg (80.0-100.0); Total Hemoglobin 12.7 g/dL (12.0-18.0); pH ABG 7.358 (7.350-7.450)
[2023-11-12 09:04] LABS: Device HIGH FLOW NASAL CANN; Modified Allen's Test Pass; PCO2 ABG 75.1 mmHg (35.0-45.0); Site Drawn RIGHT RADIAL
--- NOTE | 2023-11-12 11:00 | PM.IMPN ---
Progress Note: A&P Assessment and Plan (1) Acute respiratory failure with hypoxia: Code(s): J96.01 - Acute respiratory failure with hypoxia Status: Acute Assessment and Plan: 11/11: Patient usually does not wear oxygen but she is requiring 7 L high-flow nasal cannula for adequate saturations. COVID positive since 10/31/23. 11/12: Worsening hypoxia and respiratory distress, BiPAP ordered pulmonology consulted patient is receiving treatment dose Lovenox since PE cannot be ruled out. Echo reassuring. Patient moved to IMU status physically located in the ICU (2) COVID-19: Code(s): U07.1 - COVID-19 Status: Acute Assessment and Plan: Covid positive since 10/31/23 but now hypoxic and worsening, Remdesivir and dexamethasone on board. D-Dimer positive but patient unable to tolerate or fit in CT scan, not able to do VQ scan. 11/12: baricitinib ordered at request of pulmonology (3) Chronic venous stasis dermatitis of both lower extremities: Onset Date: ~1999 Code(s): I87.2 - Venous insufficiency (chronic) (peripheral) Status: Acute Assessment and Plan: Significant swelling/lymphedema, unable to ambulate (4) Chronic obstructive pulmonary disease: Code(s): J44.9 - Chronic obstructive pulmonary disease, unspecified Status: Acute Assessment and Plan: Continue nebs (5) Congestive heart failure: Qualifiers: Heart failure type: diastolic Heart failure chronicity: acute on chronic Qualified Code(s): I50.33 - Acute on chronic diastolic (congestive) heart failure Code(s): I50.9 - Heart failure, unspecified Status: Acute Assessment and Plan: Echo ordered. Grade 1 diastolic dysfunction. BID diuresis Plan Covid supportive care Diuresis Titrate ventilation and oxygen When stable, PT/OT need ordered code status: Full code but patient does not want elective intubation at this time Time Spent With Patient Time with patient: Greater than 35 minutes Subjective Date/time seen: 11/12/23 11:00 Interval history: H&P 11/10: This is a 68-year-old female with? History of hypertension, hyperlipidemia, congestive heart failure, chronic obstructive pulmonary disease, obstructive sleep apnea, and morbid obesity who presented to the emergency department via EMS from home for evaluation of shortness of breath. The patient provides the following history. She has not been feeling well for couple of weeks and tested positive for COVID on 10/31/2023. She continues to have symptoms to include sinus congestion, sore throat, productive cough, weakness, and shortness of breath. She has been using a nebulizer at home without much benefit. Today she reportedly had an SpO2 in the 70s on EMS arrival and on arrival to the ED she received a nebulizer treatment and 6 mg of dexamethasone with improvement in her work of breathing. She reports feeling a lot better at the time my evaluation. She denies fever, chest pain, pleuritic pain, nausea, vomiting, and diarrhea. She does however report having a poor appetite as nothing sounds or tastes good since being diagnosed with COVID. 11/11: Patient still having significant dyspnea with any activity. She is on high flow nasal cannula. Patient reports she sleeps in a recliner at home and transfers to a bedside commode right next to her chair. Patient reports that her home assistance services were placed on hold due to recent Covid diagnosis so she has not had any help at home. Her children come by very briefly but don't help with skin care in the perineum so she is getting excoriated. She also reports EMS may have caused a skin tear to left leg with rolling her. Patient will need SNF then possibly permanent placement upon stability for discharge. Supervisor Audit Clerks made aware of anticipated needs. 11/12: Patient worsening hypoxia today with respiratory distress. Pulmonology consulted for NIPPV management. CXR ordered. ABG orde
--- NOTE | 2023-11-12 11:30 | PC.NURSE ---
This patient, Rosalinda Gant, was received from [[id number]] on 11/12/23 at 1130. Patient/family oriented to unit policies and routines. Report from JOSH Arciniega.
[2023-11-12] MEDS: LIDOCAINE HCL 1% LOCAL INJ 2 ML AMPUL 5 ML INFILTRATE (11:35)
--- NOTE | 2023-11-12 11:36 | PM.CNPUL ---
Assessment and Plan Assessment and plan (1) COVID-19: Code(s): U07.1 - COVID-19 Status: Acute Assessment and Plan: Patient tested positive for COVID-19 on 10/31/23 and started on remdesivir, dexamethasone on 11/10/23 and started on baricitinib on 11/12/23tocilizumab on 07/15. Remdesivir for 10 days Unless he should recover and tolerate room air with rest, ambulation and while sleeping. - Dexamethasone 6 mg IV for 10 days - Continuous pulse oximetry - Avoid any fluid overload. - Anoro Ellipta for COPD and wheezes. - Will check COVID, RSV and influenza swab. - I will check respiratory pathogen panel -agree with no antibiotics at this point Unable to perform CT angiogram of the chest because of patient's inability to raise her arms over her head, lay flat and claustrophobia. She declined CT angiogram at this time. Patient is on full-dose Lovenox. I will check a D-dimer. I will check a procalcitonin. Keep saturations are 90-94% with nasal cannula up to 15 L, if fails then Airvo high flow nasal cannula. I discussed code status with patient and she would like to discuss this with her family. Discussed with Ashish Dow, will follow with you. (2) Respiratory failure with hypoxia and hypercapnia: Code(s): J96.91 - Respiratory failure, unspecified with hypoxia; J96.92 - Respiratory failure, unspecified with hypercapnia Status: Acute Assessment and Plan: Etiology of hypoxic respiratory failure is likely COVID pneumonia. Her BNP is mildly elevated at 221. She has pedal edema. She has normal LV systolic function on her echocardiogram. She also has untreated obstructive sleep apnea. 11/10/2023: 17:15 4 L nasal cannula saturation 98% 11/11/2023: 0845 8 L nasal cannula saturations 94% 11/11/2023: 20:00 7 L nasal cannula saturations 94% 11/12/2023: 08:30 9 L nasal cannula saturations 9%, ABG 7.36/75/73. Noninvasive ventilation initiated with AVAPS. 12:13 Plan: When she naps or sleeps she should wear noninvasive ventilation with the AVAPS mode. When she is awake. keep saturations are 90-94% with nasal cannula up to 15 L, if fails then Airvo high flow nasal cannula. (3) Chronic obstructive pulmonary disease: Code(s): J44.9 - Chronic obstructive pulmonary disease, unspecified Status: Acute Assessment and Plan: Patient tells me she has a 15 pack year tobacco history, quit at age 29. Diagnosed with COPD 20 years ago by PFTs and has been on home nebulized albuterol 2-3 times a day since then. I have no PFTs. I have no CT scan. 11/12/23: Patient has bilateral expiratory wheezes. Since she is COVID positive will treat with inhalers rather than nebulizers and have prescribed anoro ellipta. She is on dexamethasone 6 mg IV for COVID pneumonia. (4) ABY (obstructive sleep apnea): Code(s): G47.33 - Obstructive sleep apnea (adult) (pediatric) Status: Acute Assessment and Plan: Regarding her obstructive sleep apnea the patient was diagnosed in 2001 and on 07/21/2002 she had a BiPAP titration with an optimal pressure of 13/6. She had poor tolerance of CPAP and had a sleep study on 04/03/2021 demonstrating mild obstructive sleep apnea with an AHI of 9.7 which is severe during REM with an AHI of 47.3. She had profound desaturations below 88% for 74% of the study. It was recommended that she get a CPAP or BiPAP titration. Today she tells me she never had the CPAP or BiPAP titration completed because she cannot tolerate the mask. 11/12/23: Currently patient requiring intermittent positive airway pressure. She could not tolerate the BiPAP and she is on noninvasive ventilation with the AVAPS mode rate of 20, tidal volume 500, EPAP 8, minimal inspiratory pressure 9, maximal inspiratory pressure 25, inspiratory time 1.0, rise of 3 and 40% FiO2 with saturations 99%. Plan: Continue noninvasive ventilation with the AVAPS mode with the settings as above. I will check an ABG [facility] the [facility]
[2023-11-12] MEDS: BARICITINIB 2 MG TABLET 4 MG PO (12:57)
[2023-11-12 13:04] LABS: D Dimer 1.29 ug/mL (<0.48)
[2023-11-12 13:15] LABS: Free T4 Free Thyroxine 1.78 ng/mL (0.78-2.19)
[2023-11-12 13:16] LABS: Procalcitonin 0.1 ng/mL
[2023-11-12 14:46] LABS: Alveolar/Arterial O2 Gradient 140.1 mmHg; Base Excess ABG 17.6 mEq/l (+/-2.0); Fractional Inspired Oxygen 40 %; HCO3 ABG 45.6 mEq/l (22.0-26.0); Oxygen Content ABG 16.4 %vol (16.0-22.0); Oxygen Saturation ABG 91.6 % (95.0-100.0); Oxyhemoglobin 91.5 % THb (90.0-100.0); PO2 ABG 63.1 mmHg (80.0-100.0); PO2 FiO2 Ratio Arterial Blood 1.58 %; Total Hemoglobin 12.7 g/dL (12.0-18.0); pH ABG 7.424 (7.350-7.450)
[2023-11-12 14:47] LABS: Device NON-INVASIVE VENT; Modified Allen's Test Pass; PCO2 ABG 71.3 mmHg (35.0-45.0); Site Drawn RIGHT RADIAL
[2023-11-12 14:48] LABS: Non-Invasive Expiratory Pressure 8 CMH2O; Non-Invasive Vent Rate 20 /MIN
[2023-11-12] MEDS: SALINE LOCK FLUSH 10 ML IV PUSH ×2 (17:06→21:24)
[2023-11-12] MEDS: REMDESIVIR 100 MG/NS 250 ML 100 MG/250 ML BAG 250 MG IVPB (21:24)
[2023-11-13] VITALS (29 sets, daily range): BP systolic 128–156; BP diastolic 52–100; PULSE 38–68; RESP 12–25; TEMP 36.8–37.4; O2SAT 89–99
[2023-11-13 04:55] LABS: Alveolar/Arterial O2 Gradient 161.3 mmHg; Base Excess ABG 20.7 mEq/l (+/-2.0); Fractional Inspired Oxygen 45 %; HCO3 ABG 47.6 mEq/l (22.0-26.0); Oxygen Content ABG 16.6 %vol (16.0-22.0); Oxygen Saturation ABG 96.8 % (95.0-100.0); Oxyhemoglobin 94.8 % THb (90.0-100.0); PO2 ABG 86.2 mmHg (80.0-100.0); PO2 FiO2 Ratio Arterial Blood 1.92 %; Total Hemoglobin 12.4 g/dL (12.0-18.0); pH ABG 7.486 (7.350-7.450)
[2023-11-13 04:57] LABS: Device NON-INVASIVE VENT; Modified Allen's Test Pass; PCO2 ABG 64.5 mmHg (35.0-45.0); Site Drawn RIGHT RADIAL
[2023-11-13 04:58] LABS: Non-Invasive Vent Rate 20 /MIN
[2023-11-13] MEDS: LEVOTHYROXINE SODIUM 88 MCG TABLET PO (05:22)
[2023-11-13] MEDS: SALINE LOCK FLUSH 10 ML IV PUSH ×3 (05:22→22:04)
[2023-11-13] MEDS: LEVOTHYROXINE SODIUM 100 MCG TABLET 200 MCG PO (05:22)
[2023-11-13 05:43] LABS: Basophils Percent Auto 0.3 % (0.2-1.2); Hematocrit 44.8 % (37.0-47.0); Hemoglobin 11.8 g/dL (12.0-15.0); Immature Granulocyte Absolute 0.01 K/mm3 (0.00-0.031); Immature Granulocyte Percent A 0.3 % (0-0.5); Lymphocytes Absolute Auto 1.37 K/mm3 (0.9-3.2); Lymphocytes Percent Auto 35.8 % (18.3-44.2); Mean Corpuscular HGB Conc 26.3 g/dl (32-36); Mean Corpuscular Hemoglobin 21.1 pg (26-34); Mean Corpuscular Volume 80.1 fl (80-100); Mean Platelet Volume 10.5 fl (7.4-10.4); Monocytes Absolute Auto 0.4 K/mm3 (0.1-0.6); Monocytes Percent Auto 9.7 % (2.6-8.5); Neutrophils Absolute Auto 2.1 K/mm3 (1.3-6.7); Neutrophils Percent Auto 53.9 % (45.5-73.1); Platelet Count Result 194 k/mm3 (150-375); Red Blood Count 5.59 M/mm3 (4.2-5.4); Red Cell Distribution Width 19.1 % (11.5-14.5); White Blood Count 3.8 K/mm3 (4.5-10.0)
[2023-11-13 06:20] LABS: Influenza A QL RT-PCR Negative (Negative); Influenza B QL RT-PCR Negative (Negative); RSV RNA, RT-PCR Negative (Negative); SARS-CoV-2 RNA PCR Positive (Negative)
[2023-11-13 06:25] LABS: Blood Urea Nitrogen 28 mg/dL (7-17); Calcium 8.3 mg/dL (8.4-10.2); Carbon Dioxide > 40 mmol/L (22-30); Chloride 93 mmol/L (98-107); Estimated CRCL calculation 79 ml/min; Estimated Glomerular Filt Rate > 60; Glucose 96 mg/dL (65-110); Potassium 4.1 mmol/L (3.4-5.0); Sodium 141 mmol/L (137-145)
[2023-11-13] MEDS: FUROSEMIDE INJ 40 MG/4 ML VIAL IV PUSH ×2 (09:02→16:41)
[2023-11-13] MEDS: ENOXAPARIN 80 MG/0.8 ML SYRINGE 160 MG SUB-Q ×2 (09:02→20:32)
[2023-11-13] MEDS: IPRATROPIUM BR 0.02% INH SOLN 0.5 MG/2.5 ML VIAL INHALATION ×3 (09:03→21:07)
[2023-11-13] MEDS: UMECLIDINIUM/VILANTEROL 62.5-25 MCG ELLIPTA 1 PUFF INHALATION (09:03)
--- NOTE | 2023-11-13 09:26 | PM.PNPUL ---
Progress Note: A&P Assessment and Plan (1) COVID-19: Code(s): U07.1 - COVID-19 Status: Acute Assessment and Plan: Patient tested positive for COVID-19 on 10/31/23 and started on remdesivir, dexamethasone on 11/10/23 and started on baricitinib on 11/12/23tocilizumab on 07/15. Remdesivir for 10 days Unless he should recover and tolerate room air with rest, ambulation and while sleeping. - Dexamethasone 6 mg IV for 10 days - Continuous pulse oximetry - Avoid any fluid overload. - Anoro Ellipta for COPD and wheezes. - Will check COVID, RSV and influenza swab. - I will check respiratory pathogen panel -agree with no antibiotics at this point Unable to perform CT angiogram of the chest because of patient's inability to raise her arms over her head, lay flat and claustrophobia. She declined CT angiogram at this time. Patient is on full-dose Lovenox. I will check a D-dimer. I will check a procalcitonin. Keep saturations are 90-94% with nasal cannula up to 15 L, if fails then Airvo high flow nasal cannula. I discussed code status with patient and she would like to discuss this with her family. 11/13: Patient was off the noninvasive ventilator throughout the day yesterday but wore the AVAPS mode overnight. Currently she is on noninvasive ventilator with the AVAPS mode and the above-mentioned settings at 45% with saturations 99%. Patient states she is breathing a little bit better. She has less shortness of breath. White blood cell count is 3.8, creatinine is 0.9. Plan: Continue dexamethasone, remdesivir both day 4. Continue baricitinib, day 2. Wean FiO2 as tolerated. Patient is on full-dose anticoagulation for possible PE. Will attempt to get CT angiogram. Discussed with Dr. Stoll, will follow with you. (2) Respiratory failure with hypoxia and hypercapnia: Code(s): J96.91 - Respiratory failure, unspecified with hypoxia; J96.92 - Respiratory failure, unspecified with hypercapnia Status: Acute Assessment and Plan: Etiology of hypoxic respiratory failure is likely COVID pneumonia. Her BNP is mildly elevated at 221. She has pedal edema. She has normal LV systolic function on her echocardiogram. She also has untreated obstructive sleep apnea. 11/10/2023: 17:15 4 L nasal cannula saturation 98% 11/11/2023: 0845 8 L nasal cannula saturations 94% 11/11/2023: 20:00 7 L nasal cannula saturations 94% 11/12/2023: 08:30 9 L nasal cannula saturations 9%, ABG 7.36/75/73. Noninvasive ventilation initiated with AVAPS. 11/12/2023: 17:15 9 L NC 92% 11/12/2023: 20:00 AVAPS EPAP8, 45%, sats 92% 11/13/2023: 08:00 AVAPS EPAP8, 45%, sats 99% 12:13 Plan: When she naps or sleeps she should wear noninvasive ventilation with the AVAPS mode. When she is awake. keep saturations are 90-94% with nasal cannula up to 15 L, if fails then Airvo high flow nasal cannula. 11/13: Goal saturation 90-94%. (3) Chronic obstructive pulmonary disease: Code(s): J44.9 - Chronic obstructive pulmonary disease, unspecified Status: Acute Assessment and Plan: Patient tells me she has a 15 pack year tobacco history, quit at age 29. Diagnosed with COPD 20 years ago by PFTs and has been on home nebulized albuterol 2-3 times a day since then. I have no PFTs. I have no CT scan. 11/12/23: Patient has bilateral expiratory wheezes. Since she is COVID positive will treat with inhalers rather than nebulizers and have prescribed anoro ellipta. She is on dexamethasone 6 mg IV for COVID pneumonia. 11/13: Wheezes less pronounced today. Plan continue Anoro Ellipta and dexamethasone. (4) ABY (obstructive sleep apnea): Code(s): G47.33 - Obstructive sleep apnea (adult) (pediatric) Status: Acute Assessment and Plan: Regarding her obstructive sleep apnea the patient was diagnosed in 2001 and on 07/21/2002 she had a BiPAP titration with an optimal pressure of 13/6. She had poor tolerance of CPAP and had a sleep roxana
--- NOTE | 2023-11-13 11:31 | PM.IMPN ---
Progress Note: A&P Assessment and Plan (1) Acute respiratory failure with hypoxia: Code(s): J96.01 - Acute respiratory failure with hypoxia Status: Acute (2) COVID-19: Code(s): U07.1 - COVID-19 Status: Acute Assessment and Plan: Covid positive since 10/31/23 but now hypoxic and worsening, Remdesivir and dexamethasone on board. D-Dimer positive but patient unable to tolerate or fit in CT scan, not able to do VQ scan. 11/12: baricitinib ordered at request of pulmonology (3) Chronic venous stasis dermatitis of both lower extremities: Onset Date: ~1999 Code(s): I87.2 - Venous insufficiency (chronic) (peripheral) Status: Acute Assessment and Plan: Significant swelling/lymphedema, unable to ambulate Continue diuretics (4) Chronic obstructive pulmonary disease: Code(s): J44.9 - Chronic obstructive pulmonary disease, unspecified Status: Acute Assessment and Plan: Continue nebs (5) Congestive heart failure: Qualifiers: Heart failure type: diastolic Heart failure chronicity: acute on chronic Qualified Code(s): I50.33 - Acute on chronic diastolic (congestive) heart failure Code(s): I50.9 - Heart failure, unspecified Status: Acute Assessment and Plan: Echo reviewed Grade 1 diastolic dysfunction. Continue diuretics (6) Respiratory failure with hypoxia and hypercapnia: Code(s): J96.91 - Respiratory failure, unspecified with hypoxia; J96.92 - Respiratory failure, unspecified with hypercapnia Status: Acute Assessment and Plan: Multifactorial respiratory failure with hypoxia and hypercarbia Improved with AVAPS and diuretics Continue Lasix, continue AVAPS as per pulmonology Will transition patient to nasal cannula this morning and see how she tolerates She is on Anoro Ellipta bronchodilators dexamethasone Not on antibiotics She is on empiric anticoagulation and CTA lung is ordered to rule out PE Plan code status: Full code Subjective Date/time seen: 11/13/23 She wore BiPAP overnight. States her breathing is little better. She has cough which is dry. Denies any other complaints. All other systems were reviewed and were negative Interval history: 11/12/2023: This is a new pulmonary consult for COVID pneumonia with hypoxemic respiratory failure. 68-year-old woman with a history of hypertension, hyperlipidemia, congestive heart failure, COPD, morbid obesity, obstructive sleep apnea, lymphedema. Echocardiogram with an LVEF 65-70%, grade 1 diastolic dysfunction, mild mitral valve regurg, mild aortic valve sclerosis normal right ventricular size and function.? Normal right atrial size.? No RVSP listed.? Lower extremity Dopplers were negative. DATA: 11/12/23: EXAMINATION: XR chest 1V portable INDICATION: Hypoxic respiratory failure. COVID-19 positive. TECHNIQUE: A single frontal view of the chest was obtained. COMPARISON: Chest single view 11/10/2023, chest 2 views 09/26/2012 FINDINGS: There are airspace opacities in the perihilar regions and left mid and lower lung zones. No pleural effusion or pneumothorax. Cardiomegaly is noted. IMPRESSION: 1. Airspace opacities in the perihilar regions and left mid and lower lung zones, consistent with pulmonary edema and atelectasis versus atypical pneumonia. 2. Cardiomegaly. 11/11/23: Echo?Summary ? 1. Left ventricular chamber dimension is normal. ? 2. Left ventricular systolic function is normal, estimated at 65-70%. ? 3. There is moderately increased left ventricular wall thickness. ? 4. The left ventricular diastolic function is grade I diastolic dysfunction. ? 5. Left atrial chamber dimension is mildly enlarged. ? 6. There is mild mitral valve regurgitation. ? 7. There is mild aortic valve sclerosis. Review of Systems Review of Systems: ROS unobtainable: Yes unobtainable due to medical condition Exa
[2023-11-13] MEDS: BARICITINIB 2 MG TABLET 4 MG PO (11:54)
[2023-11-13] MEDS: PROPRANOLOL HCL 20 MG TABLET PO (20:32)
[2023-11-13] MEDS: REMDESIVIR 100 MG/NS 250 ML 100 MG/250 ML BAG 250 MG IVPB (22:03)
[2023-11-14] VITALS (15 sets, daily range): BP systolic 121–150; BP diastolic 45–107; PULSE 41–63; RESP 13–24; TEMP 36.2–37.7; O2SAT 89–97
[2023-11-14] MEDS: IPRATROPIUM BR 0.02% INH SOLN 0.5 MG/2.5 ML VIAL INHALATION (02:18)
[2023-11-14 06:53] LABS: Hematocrit 45.4 % (37.0-47.0); Hemoglobin 12.1 g/dL (12.0-15.0); Immature Granulocyte Absolute 0.01 K/mm3 (0.00-0.031); Immature Granulocyte Percent A 0.2 % (0-0.5); Lymphocytes Absolute Auto 1.38 K/mm3 (0.9-3.2); Lymphocytes Percent Auto 30.5 % (18.3-44.2); Mean Corpuscular HGB Conc 26.7 g/dl (32-36); Mean Platelet Volume 10.7 fl (7.4-10.4); Monocytes Absolute Auto 0.6 K/mm3 (0.1-0.6); Monocytes Percent Auto 12.4 % (2.6-8.5); Neutrophils Absolute Auto 2.6 K/mm3 (1.3-6.7); Neutrophils Percent Auto 56.9 % (45.5-73.1); Platelet Count Result 198 k/mm3 (150-375); Red Blood Count 5.75 M/mm3 (4.2-5.4); Red Cell Distribution Width 19.2 % (11.5-14.5); White Blood Count 4.5 K/mm3 (4.5-10.0)
[2023-11-14 07:03] LABS: Alanine Aminotransferase 35 U/L (6-35); Albumin Level 3.2 g/dL (3.5-5.1); Alkaline Phosphatase 67 U/L (38-126); Aspartate Amino Transferase 41 U/L (14-36); Bilirubin,Total 1.1 mg/dL (0.2-1.3); Blood Urea Nitrogen 26 mg/dL (7-17); Calcium 8.2 mg/dL (8.4-10.2); Carbon Dioxide > 40 mmol/L (22-30); Chloride 91 mmol/L (98-107); Estimated CRCL calculation 100 ml/min; Estimated Glomerular Filt Rate > 60; Glucose 87 mg/dL (65-110); Magnesium 1.7 mg/dL (1.6-2.3); Potassium 3.3 mmol/L (3.4-5.0); Sodium 140 mmol/L (137-145)
[2023-11-14] MEDS: LEVOTHYROXINE SODIUM 100 MCG TABLET 200 MCG PO (07:07)
[2023-11-14] MEDS: LEVOTHYROXINE SODIUM 88 MCG TABLET PO (07:07)
[2023-11-14] MEDS: SALINE LOCK FLUSH 10 ML IV PUSH ×3 (07:07→21:54)
[2023-11-14 07:56] LABS: Platelet Estimate Adequate (Adequate)
[2023-11-14 07:57] LABS: Hypochromasia 1+ (NORMAL); Schistocytes None Seen (NORMAL)
[2023-11-14 07:59] LABS: INR 1.1; Prothrombin Time 14.5 Seconds (11.1-14.7)
[2023-11-14] MEDS: PROPRANOLOL HCL 20 MG TABLET PO ×2 (08:19→21:53)
[2023-11-14] MEDS: ENOXAPARIN 80 MG/0.8 ML SYRINGE 160 MG SUB-Q ×2 (08:19→21:53)
[2023-11-14] MEDS: FUROSEMIDE INJ 40 MG/4 ML VIAL IV PUSH ×2 (08:19→17:02)
[2023-11-14] MEDS: UMECLIDINIUM/VILANTEROL 62.5-25 MCG ELLIPTA 1 PUFF INHALATION (09:15)
[2023-11-14] MEDS: KCL 40 MEQ/WATER 100 ML 100 ML 25 ML IVPB (09:46)
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
--- NOTE | 2023-11-14 10:06 | PM.PNPUL ---
Progress Note: A&P Assessment and Plan (1) COVID-19: Code(s): U07.1 - COVID-19 Status: Acute Assessment and Plan: Patient tested positive for COVID-19 on 10/31/23 and started on remdesivir, dexamethasone on 11/10/23 and started on baricitinib on 11/12/23tocilizumab on 07/15. Remdesivir for 10 days Unless he should recover and tolerate room air with rest, ambulation and while sleeping. - Dexamethasone 6 mg IV for 10 days - Continuous pulse oximetry - Avoid any fluid overload. - Anoro Ellipta for COPD and wheezes. - Will check COVID, RSV and influenza swab. - I will check respiratory pathogen panel -agree with no antibiotics at this point Unable to perform CT angiogram of the chest because of patient's inability to raise her arms over her head, lay flat and claustrophobia. She declined CT angiogram at this time. Patient is on full-dose Lovenox. I will check a D-dimer. I will check a procalcitonin. Keep saturations are 90-94% with nasal cannula up to 15 L, if fails then Airvo high flow nasal cannula. I discussed code status with patient and she would like to discuss this with her family. 11/13: Patient was off the noninvasive ventilator throughout the day yesterday but wore the AVAPS mode overnight. Currently she is on noninvasive ventilator with the AVAPS mode and the above-mentioned settings at 45% with saturations 99%. Patient states she is breathing a little bit better. She has less shortness of breath. White blood cell count is 3.8, creatinine is 0.9. Plan: Continue dexamethasone, remdesivir both day 4. Continue baricitinib, day 2. Wean FiO2 as tolerated. Patient is on full-dose anticoagulation for possible PE. Will attempt to get CT angiogram. 11/14: Patient continues to slowly improve. She tells me she has 20-30% back to her normal. She is tolerating the noninvasive ventilator at night. She has no wheezing on exam. White blood cell count 4.5, creatinine 0.7. Chest x-ray with left lower lobe consolidation and mild diffuse interstitial alveolar infiltrates throughout. Currently she is on 5 L nasal cannula saturations 91%. Plan: Continue dexamethasone, remdesivir both day 5. Continue baricitinib, day 3. Wean FiO2 as tolerated. Patient is on full-dose anticoagulation for possible PE. Patient tells me she cannot receive a CT scan because she is severely claustrophobic and can not breathe when she sees the CT scanner. Discussed with Ashish Dow, pulmonary inpatient consultative services will resume on 11/17/2023. Call with questions. (2) Respiratory failure with hypoxia and hypercapnia: Code(s): J96.91 - Respiratory failure, unspecified with hypoxia; J96.92 - Respiratory failure, unspecified with hypercapnia Status: Acute Assessment and Plan: Etiology of hypoxic respiratory failure is likely COVID pneumonia. Her BNP is mildly elevated at 221. She has pedal edema. She has normal LV systolic function on her echocardiogram. She also has untreated obstructive sleep apnea. 11/10/2023: 17:15 4 L nasal cannula saturation 98% 11/11/2023: 0845 8 L nasal cannula saturations 94% 11/11/2023: 20:00 7 L nasal cannula saturations 94% 11/12/2023: 08:30 9 L nasal cannula saturations 9%, ABG 7.36/75/73. Noninvasive ventilation initiated with AVAPS. 11/12/2023: 17:15 9 L NC 92% 11/12/2023: 20:00 AVAPS EPAP8, 45%, sats 92% 11/13/2023: 08:00 AVAPS EPAP8, 45%, sats 99% 11/13/2023: 21:00 6L NC, sats 97% 11/14/2023: 08:00 5 L NC, sats 91% 12: Plan: When she naps or sleeps she should wear noninvasive ventilation with the AVAPS mode. When she is awake. keep saturations are 90-94% with nasal cannula up to 15 L, if fails then Airvo high flow nasal cannula. 11/13: Goal saturation 90-94%. 11/14: Currently she is on 5 L nasal cannula saturations 91%. Goal saturation 90-94%. (3) Chronic obstructive pulmonary disease: Code(s): J44.9 - Chronic obstructive pulmonary disease, unspecified
[2023-11-14] MEDS: BARICITINIB 2 MG TABLET 4 MG PO (11:49)
--- NOTE | 2023-11-14 12:12 | PC.NURSE ---
pt's heart rate increased during dialysis into the 140-150's, notified Dr. Stoll, he requesed for dialysis nurse to stop removing fluids and to only filtrate, versed given one time, see mar, heart rate and resp. rate went back to pt's normsl for her
--- NOTE | 2023-11-14 17:35 | PC.NURSE ---
This patient, Rosalinda Gant, was transferred to [facility] on 11/14/23 at 1715. Personal belongings sent with patient. Report given to Pravin MORENO. Appropriate documentation sent with patient.
[2023-11-14] MEDS: REMDESIVIR 100 MG/NS 250 ML 100 MG/250 ML BAG 250 MG IVPB (21:53)
[2023-11-15] VITALS (21 sets, daily range): BP systolic 115–140; BP diastolic 44–67; PULSE 43–87; RESP 20–22; TEMP 36–36.9; O2SAT 93–98
[2023-11-15] MEDS: LEVOTHYROXINE SODIUM 100 MCG TABLET 200 MCG PO (06:49)
[2023-11-15] MEDS: SALINE LOCK FLUSH 10 ML IV PUSH (06:49)
[2023-11-15] MEDS: LEVOTHYROXINE SODIUM 88 MCG TABLET PO (06:49)
[2023-11-15] MEDS: UMECLIDINIUM/VILANTEROL 62.5-25 MCG ELLIPTA 1 PUFF INHALATION (09:00)
[2023-11-15] MEDS: FUROSEMIDE INJ 40 MG/4 ML VIAL IV PUSH ×2 (10:13→17:10)
[2023-11-15] MEDS: ENOXAPARIN 80 MG/0.8 ML SYRINGE 160 MG SUB-Q ×2 (10:13→20:40)
[2023-11-15] MEDS: PROPRANOLOL HCL 20 MG TABLET PO ×2 (10:14→20:40)
[2023-11-15 10:32] LABS: Basophils Percent Auto 0.2 % (0.2-1.2); Hemoglobin 12.6 g/dL (12.0-15.0); Immature Granulocyte Absolute 0.01 K/mm3 (0.00-0.031); Immature Granulocyte Percent A 0.2 % (0-0.5); Immature Platelet Fraction Pct 8.1 % (0.9-11.2); Lymphocytes Absolute Auto 1.18 K/mm3 (0.9-3.2); Lymphocytes Percent Auto 25.1 % (18.3-44.2); Mean Corpuscular HGB Conc 26.8 g/dl (32-36); Mean Corpuscular Hemoglobin 21.2 pg (26-34); Mean Corpuscular Volume 79.3 fl (80-100); Mean Platelet Volume 9.9 fl (7.4-10.4); Monocytes Absolute Auto 0.7 K/mm3 (0.1-0.6); Monocytes Percent Auto 14.9 % (2.6-8.5); Neutrophils Absolute Auto 2.8 K/mm3 (1.3-6.7); Neutrophils Percent Auto 59.6 % (45.5-73.1); Platelet Count Result 194 k/mm3 (150-375); Red Blood Count 5.93 M/mm3 (4.2-5.4); Red Cell Distribution Width 19.1 % (11.5-14.5); White Blood Count 4.7 K/mm3 (4.5-10.0)
[2023-11-15 10:39] LABS: INR 1.1; Prothrombin Time 14.3 Seconds (11.1-14.7)
[2023-11-15 10:47] LABS: Blood Urea Nitrogen 31 mg/dL (7-17); Calcium 8.5 mg/dL (8.4-10.2); Carbon Dioxide > 40 mmol/L (22-30); Chloride 93 mmol/L (98-107); Estimated CRCL calculation 88 ml/min; Estimated Glomerular Filt Rate > 60; Glucose 108 mg/dL (65-110); Magnesium 1.9 mg/dL (1.6-2.3); Potassium 3.3 mmol/L (3.4-5.0); Sodium 140 mmol/L (137-145)
[2023-11-15 10:47] LABS: Alanine Aminotransferase 38 U/L (6-35); Albumin Level 3.2 g/dL (3.5-5.1); Alkaline Phosphatase 63 U/L (38-126); Aspartate Amino Transferase 37 U/L (14-36); Bilirubin,Total 0.9 mg/dL (0.2-1.3)
[2023-11-15 11:00] LABS: Anisocytosis 1+ (NORMAL); Hypochromasia 1+ (NORMAL); Platelet Estimate Adequate (Adequate); Schistocytes None Seen (NORMAL)
--- NOTE | 2023-11-15 12:32 | PM.IMPN ---
Progress Note: A&P Assessment and Plan (1) Acute respiratory failure with hypoxia: Code(s): J96.01 - Acute respiratory failure with hypoxia Status: Acute Assessment and Plan: related to COVID pneumonia possible PE that was unable to be ruled out so is being treated with Lovenox twice daily (2) COVID-19: Code(s): U07.1 - COVID-19 Status: Acute Assessment and Plan: Covid positive since 10/31/23 but now hypoxic and worsening, Remdesivir and dexamethasone on board. D-Dimer positive but patient unable to tolerate or fit in CT scan, not able to do VQ scan. 11/12: baricitinib ordered at request of pulmonology 11/14: per conversation with Dr. Mar, continue remdesivir for 10 days total, dexamethasone for 10 days and complete course of baricitinib. (3) Chronic venous stasis dermatitis of both lower extremities: Onset Date: ~1999 Code(s): I87.2 - Venous insufficiency (chronic) (peripheral) Status: Acute Assessment and Plan: Significant swelling/lymphedema, unable to ambulate Continue diuretics (4) Chronic obstructive pulmonary disease: Code(s): J44.9 - Chronic obstructive pulmonary disease, unspecified Status: Acute Assessment and Plan: Continue nebs (5) Congestive heart failure: Qualifiers: Heart failure type: diastolic Heart failure chronicity: acute on chronic Qualified Code(s): I50.33 - Acute on chronic diastolic (congestive) heart failure Code(s): I50.9 - Heart failure, unspecified Status: Acute Assessment and Plan: Echo reviewed Grade 1 diastolic dysfunction. Continue diuretics (6) Respiratory failure with hypoxia and hypercapnia: Code(s): J96.91 - Respiratory failure, unspecified with hypoxia; J96.92 - Respiratory failure, unspecified with hypercapnia Status: Acute Assessment and Plan: Multifactorial respiratory failure with hypoxia and hypercarbia Improved with AVAPS and diuretics Continue Lasix, continue AVAPS as per pulmonology Will transition patient to nasal cannula this morning and see how she tolerates She is on Anoro Ellipta bronchodilators dexamethasone Not on antibiotics She is on empiric anticoagulation and CTA lung is ordered to rule out PE 11/15: Patient is unable to tolerate CTA unable to lay flat or raise her arms above her head. Thus, we will continue treatment dosing for presumed PE Plan code status: Full code Subjective Date/time seen: 11/15/23 12:32 Interval history: H&P 11/10: This is a 68-year-old female with? History of hypertension, hyperlipidemia, congestive heart failure, chronic obstructive pulmonary disease, obstructive sleep apnea, and morbid obesity who presented to the emergency department via EMS from home for evaluation of shortness of breath. The patient provides the following history. She has not been feeling well for couple of weeks and tested positive for COVID on 10/31/2023. She continues to have symptoms to include sinus congestion, sore throat, productive cough, weakness, and shortness of breath. She has been using a nebulizer at home without much benefit. Today she reportedly had an SpO2 in the 70s on EMS arrival and on arrival to the ED she received a nebulizer treatment and 6 mg of dexamethasone with improvement in her work of breathing. She reports feeling a lot better at the time my evaluation. She denies fever, chest pain, pleuritic pain, nausea, vomiting, and diarrhea. She does however report having a poor appetite as nothing sounds or tastes good since being diagnosed with COVID. 11/11: Patient still having significant dyspnea with any activity. She is on high flow nasal cannula. Patient reports she sleeps in a recliner at home and transfers to a bedside commode right next to her chair. Patient reports that her home assistance services were placed on hold due to recent Covid diagnosis so she has not had any help at home. Her children come by [place]
[2023-11-15] MEDS: BARICITINIB 2 MG TABLET 4 MG PO (13:20)
[2023-11-15] MEDS: POTASSIUM CHLORIDE INJ 40 MEQ in SODIUM CHLORIDE 0.9% IV 500 ML 130 MEQ IVPB (13:20)
--- NOTE | 2023-11-15 18:17 | PM.PNPUL ---
Progress Note: A&P Assessment and Plan (1) COVID-19: Code(s): U07.1 - COVID-19 Status: Acute Assessment and Plan: Patient tested positive for COVID-19 on 10/31/23 and started on remdesivir, dexamethasone on 11/10/23 and started on baricitinib on 11/12/23tocilizumab on 07/15. Remdesivir for 10 days Unless he should recover and tolerate room air with rest, ambulation and while sleeping. - Dexamethasone 6 mg IV for 10 days - Continuous pulse oximetry - Avoid any fluid overload. - Anoro Ellipta for COPD and wheezes. - Will check COVID, RSV and influenza swab. - I will check respiratory pathogen panel -agree with no antibiotics at this point Unable to perform CT angiogram of the chest because of patient's inability to raise her arms over her head, lay flat and claustrophobia. She declined CT angiogram at this time. Patient is on full-dose Lovenox. I will check a D-dimer. I will check a procalcitonin. Keep saturations are 90-94% with nasal cannula up to 15 L, if fails then Airvo high flow nasal cannula. I discussed code status with patient and she would like to discuss this with her family. 11/13: Patient was off the noninvasive ventilator throughout the day yesterday but wore the AVAPS mode overnight. Currently she is on noninvasive ventilator with the AVAPS mode and the above-mentioned settings at 45% with saturations 99%. Patient states she is breathing a little bit better. She has less shortness of breath. White blood cell count is 3.8, creatinine is 0.9. Plan: Continue dexamethasone, remdesivir both day 4. Continue baricitinib, day 2. Wean FiO2 as tolerated. Patient is on full-dose anticoagulation for possible PE. Will attempt to get CT angiogram. 11/14: Patient continues to slowly improve. She tells me she has 20-30% back to her normal. She is tolerating the noninvasive ventilator at night. She has no wheezing on exam. White blood cell count 4.5, creatinine 0.7. Chest x-ray with left lower lobe consolidation and mild diffuse interstitial alveolar infiltrates throughout. Currently she is on 5 L nasal cannula saturations 91%. Plan: Continue dexamethasone, remdesivir both day 5. Continue baricitinib, day 3. Wean FiO2 as tolerated. Patient is on full-dose anticoagulation for possible PE. Patient tells me she cannot receive a CT scan because she is severely claustrophobic and can not breathe when she sees the CT scanner. 11/15: Continue dexamethasone, remdesivir, and baricitinib day 4. Wean FiO2 as tolerated. Patient is on full-dose anticoagulation for possible PE, cannot have CT scan because she is severely claustrophobic and can not breathe when she sees the CT scanner. (2) Respiratory failure with hypoxia and hypercapnia: Code(s): J96.91 - Respiratory failure, unspecified with hypoxia; J96.92 - Respiratory failure, unspecified with hypercapnia Status: Acute Assessment and Plan: Etiology of hypoxic respiratory failure is likely COVID pneumonia. Her BNP is mildly elevated at 221. She has pedal edema. She has normal LV systolic function on her echocardiogram. She also has untreated obstructive sleep apnea. 11/10/2023: 17:15 4 L nasal cannula saturation 98% 11/11/2023: 0845 8 L nasal cannula saturations 94% 11/11/2023: 20:00 7 L nasal cannula saturations 94% 11/12/2023: 08:30 9 L nasal cannula saturations 9%, ABG 7.36/75/73. Noninvasive ventilation initiated with AVAPS. 11/12/2023: 17:15 9 L NC 92% 11/12/2023: 20:00 AVAPS EPAP8, 45%, sats 92% 11/13/2023: 08:00 AVAPS EPAP8, 45%, sats 99% 11/13/2023: 21:00 6L NC, sats 97% 11/14/2023: 08:00 5 L NC, sats 91% 11/15/2023: 17:25 6 L/min; saturation 93% 12:13 Plan: When she naps or sleeps she should wear noninvasive ventilation with the AVAPS mode. When she is awake. keep saturations are 90-94% with nasal cannula up to 15 L, if fails then Airvo high flow nasal cannula.
[2023-11-15] MEDS: polyethylene glycoL 3350 17 GM POWD.PACK PO (20:40)
[2023-11-15] MEDS: REMDESIVIR 100 MG/NS 250 ML 100 MG/250 ML BAG 250 MG IVPB (21:11)
[2023-11-16] VITALS (10 sets, daily range): BP systolic 118–145; BP diastolic 46–59; PULSE 48–64; RESP 16–21; TEMP 36–37.3; O2SAT 91–98
[2023-11-16 04:32] LABS: Hematocrit 47.8 % (37.0-47.0); Hemoglobin 12.9 g/dL (12.0-15.0); Immature Granulocyte Absolute 0.01 K/mm3 (0.00-0.031); Immature Granulocyte Percent A 0.2 % (0-0.5); Immature Platelet Fraction Pct 8.4 % (0.9-11.2); Lymphocytes Absolute Auto 1.23 K/mm3 (0.9-3.2); Lymphocytes Percent Auto 27.5 % (18.3-44.2); Mean Corpuscular Hemoglobin 21.2 pg (26-34); Mean Corpuscular Volume 78.5 fl (80-100); Mean Platelet Volume 9.8 fl (7.4-10.4); Monocytes Absolute Auto 0.5 K/mm3 (0.1-0.6); Monocytes Percent Auto 11.4 % (2.6-8.5); Neutrophils Absolute Auto 2.7 K/mm3 (1.3-6.7); Neutrophils Percent Auto 60.9 % (45.5-73.1); Platelet Count Result 189 k/mm3 (150-375); Red Blood Count 6.09 M/mm3 (4.2-5.4); Red Cell Distribution Width 19.1 % (11.5-14.5); White Blood Count 4.5 K/mm3 (4.5-10.0)
[2023-11-16 04:55] LABS: Blood Urea Nitrogen 35 mg/dL (7-17); Calcium 8.5 mg/dL (8.4-10.2); Carbon Dioxide > 40 mmol/L (22-30); Chloride 93 mmol/L (98-107); Estimated CRCL calculation 100 ml/min; Estimated Glomerular Filt Rate > 60; Glucose 95 mg/dL (65-110); Magnesium 1.8 mg/dL (1.6-2.3); Potassium 3.5 mmol/L (3.4-5.0); Sodium 139 mmol/L (137-145)
[2023-11-16] MEDS: LEVOTHYROXINE SODIUM 100 MCG TABLET 200 MCG PO (05:31)
[2023-11-16] MEDS: LEVOTHYROXINE SODIUM 88 MCG TABLET PO (05:31)
[2023-11-16 07:23] LABS: Anisocytosis 1+ (NORMAL); Hypochromasia 1+ (NORMAL); Platelet Estimate Adequate (Adequate)
[2023-11-16 07:24] LABS: Schistocytes None Seen (NORMAL)
[2023-11-16] MEDS: UMECLIDINIUM/VILANTEROL 62.5-25 MCG ELLIPTA 1 PUFF INHALATION (08:54)
[2023-11-16] MEDS: ENOXAPARIN 80 MG/0.8 ML SYRINGE 160 MG SUB-Q ×2 (09:47→21:42)
[2023-11-16] MEDS: FUROSEMIDE INJ 40 MG/4 ML VIAL IV PUSH ×2 (09:48→18:05)
[2023-11-16] MEDS: PROPRANOLOL HCL 20 MG TABLET PO (09:49)
[2023-11-16] MEDS: BARICITINIB 2 MG TABLET 4 MG PO (09:49)
[2023-11-16] MEDS: GLYCERIN ADULT 1 SUPP.RECT RECTAL (11:14)
--- NOTE | 2023-11-16 16:18 | PM.IMPN ---
Progress Note: A&P Assessment and Plan (1) Acute respiratory failure with hypoxia: Code(s): J96.01 - Acute respiratory failure with hypoxia Status: Acute Assessment and Plan: related to COVID pneumonia possible PE that was unable to be ruled out so is being treated with Lovenox twice daily (2) COVID-19: Code(s): U07.1 - COVID-19 Status: Acute Assessment and Plan: Covid positive since 10/31/23 but now hypoxic and worsening, Remdesivir and dexamethasone on board. D-Dimer positive but patient unable to tolerate or fit in CT scan, not able to do VQ scan. 11/12: baricitinib ordered at request of pulmonology 11/14: per conversation with Dr. Mar, continue remdesivir for 10 days total, dexamethasone for 10 days and complete course of baricitinib. (3) Chronic venous stasis dermatitis of both lower extremities: Onset Date: ~1999 Code(s): I87.2 - Venous insufficiency (chronic) (peripheral) Status: Acute Assessment and Plan: Swelling is improved as evidenced by deep seated wrinkles on the top of the feet and bilateral lower legs. States her legs/feet feel better with some of the fluid gone Continue diuretics (4) Chronic obstructive pulmonary disease: Code(s): J44.9 - Chronic obstructive pulmonary disease, unspecified Status: Acute Assessment and Plan: Continue nebs (5) Congestive heart failure: Qualifiers: Heart failure type: diastolic Heart failure chronicity: acute on chronic Qualified Code(s): I50.33 - Acute on chronic diastolic (congestive) heart failure Code(s): I50.9 - Heart failure, unspecified Status: Acute Assessment and Plan: Echo reviewed Grade 1 diastolic dysfunction. Continue diuretics (6) Respiratory failure with hypoxia and hypercapnia: Code(s): J96.91 - Respiratory failure, unspecified with hypoxia; J96.92 - Respiratory failure, unspecified with hypercapnia Status: Acute Assessment and Plan: Multifactorial respiratory failure with hypoxia and hypercarbia Improved with AVAPS and diuretics Continue Lasix, continue AVAPS as per pulmonology Will transition patient to nasal cannula this morning and see how she tolerates She is on Anoro Ellipta bronchodilators dexamethasone Not on antibiotics She is on empiric anticoagulation and CTA lung is ordered to rule out PE 11/15: Patient is unable to tolerate CTA unable to lay flat or raise her arms above her head. Thus, we will continue treatment dosing for presumed PE Plan code status: Full code Time Spent With Patient Time with patient: 15 - 25 minutes Subjective Date/time seen: 11/16/23 16:18 Interval history: H&P 11/10:? This is a 68-year-old female with? History of hypertension, hyperlipidemia, congestive heart failure, chronic obstructive pulmonary disease, obstructive sleep apnea, and morbid obesity who presented to the emergency department via EMS from home for evaluation of shortness of breath. The patient provides the following history. She has not been feeling well for couple of weeks and tested positive for COVID on 10/31/2023. She continues to have symptoms to include sinus congestion, sore throat, productive cough, weakness, and shortness of breath. She has been using a nebulizer at home without much benefit. Today she reportedly had an SpO2 in the 70s on EMS arrival and on arrival to the ED she received a nebulizer treatment and 6 mg of dexamethasone with improvement in her work of breathing. She reports feeling a lot better at the time my evaluation. She denies fever, chest pain, pleuritic pain, nausea, vomiting, and diarrhea. She does however report having a poor appetite as nothing sounds or tastes good since being diagnosed with COVID. 11/11: Patient still having significant dyspnea with any activity.? She is on high flow nasal cannula.? Patient reports she sleeps in a recliner at home and transfers to a bedside commode right next to her c
--- NOTE | 2023-11-16 18:48 | PM.PNPUL ---
Progress Note: A&P Assessment and Plan (1) COVID-19: Code(s): U07.1 - COVID-19 Status: Acute Assessment and Plan: Patient tested positive for COVID-19 on 10/31/23 and started on remdesivir, dexamethasone on 11/10/23 and started on baricitinib on 11/12/23tocilizumab on 07/15. Remdesivir for 10 days Unless he should recover and tolerate room air with rest, ambulation and while sleeping. - Dexamethasone 6 mg IV for 10 days - Continuous pulse oximetry - Avoid any fluid overload. - Anoro Ellipta for COPD and wheezes. - Will check COVID, RSV and influenza swab. - I will check respiratory pathogen panel -agree with no antibiotics at this point Unable to perform CT angiogram of the chest because of patient's inability to raise her arms over her head, lay flat and claustrophobia. She declined CT angiogram at this time. Patient is on full-dose Lovenox. I will check a D-dimer. I will check a procalcitonin. Keep saturations are 90-94% with nasal cannula up to 15 L, if fails then Airvo high flow nasal cannula. I discussed code status with patient and she would like to discuss this with her family. 11/13: Patient was off the noninvasive ventilator throughout the day yesterday but wore the AVAPS mode overnight. Currently she is on noninvasive ventilator with the AVAPS mode and the above-mentioned settings at 45% with saturations 99%. Patient states she is breathing a little bit better. She has less shortness of breath. White blood cell count is 3.8, creatinine is 0.9. Plan: Continue dexamethasone, remdesivir both day 4. Continue baricitinib, day 2. Wean FiO2 as tolerated. Patient is on full-dose anticoagulation for possible PE. Will attempt to get CT angiogram. 11/14: Patient continues to slowly improve. She tells me she has 20-30% back to her normal. She is tolerating the noninvasive ventilator at night. She has no wheezing on exam. White blood cell count 4.5, creatinine 0.7. Chest x-ray with left lower lobe consolidation and mild diffuse interstitial alveolar infiltrates throughout. Currently she is on 5 L nasal cannula saturations 91%. Plan: Continue dexamethasone, remdesivir both day 5. Continue baricitinib, day 3. Wean FiO2 as tolerated. Patient is on full-dose anticoagulation for possible PE. Patient tells me she cannot receive a CT scan because she is severely claustrophobic and can not breathe when she sees the CT scanner. 11/15: Continue dexamethasone, remdesivir, and baricitinib day 4. Wean FiO2 as tolerated. Patient is on full-dose anticoagulation for possible PE, cannot have CT scan because she is severely claustrophobic and can not breathe when she sees the CT scanner. 11/16: Continue dexamethasone, remdesivir, and baricitinib day 5. On 6 L/min with saturation 95%. (2) Respiratory failure with hypoxia and hypercapnia: Code(s): J96.91 - Respiratory failure, unspecified with hypoxia; J96.92 - Respiratory failure, unspecified with hypercapnia Status: Acute Assessment and Plan: Etiology of hypoxic respiratory failure is likely COVID pneumonia. Her BNP is mildly elevated at 221. She has pedal edema. She has normal LV systolic function on her echocardiogram. She also has untreated obstructive sleep apnea. 11/10/2023: 17:15 4 L nasal cannula saturation 98% 11/11/2023: 0845 8 L nasal cannula saturations 94% 11/11/2023: 20:00 7 L nasal cannula saturations 94% 11/12/2023: 08:30 9 L nasal cannula saturations 9%, ABG 7.36/75/73. Noninvasive ventilation initiated with AVAPS. 11/12/2023: 17:15 9 L NC 92% 11/12/2023: 20:00 AVAPS EPAP8, 45%, sats 92% 11/13/2023: 08:00 AVAPS EPAP8, 45%, sats 99% 11/13/2023: 21:00 6L NC, sats 97% 11/14/2023: 08:00 5 L NC, sats 91% 11/15/2023: 17:25 6 L/min; saturation 93% 11/16/2023: 08:00 6 L/min bright 95% 12:13 Plan: When she naps or sleeps she should wear noninvasive ventilation with
[2023-11-16] MEDS: REMDESIVIR 100 MG/NS 250 ML 100 MG/250 ML BAG 250 MG IVPB (21:42)
--- NOTE | 2023-11-16 23:23 | PC.NURSE ---
patient pulse 51 notified Sydnie [employer] nurse held Inderal bp medication.
[2023-11-17] VITALS (12 sets, daily range): BP systolic 135–178; BP diastolic 52–103; PULSE 44–61; RESP 18–20; TEMP 36.3–37.1; O2SAT 91–99
[2023-11-17 05:25] LABS: Eosinophils Percent Auto 0.2 % (0-4.4); Hematocrit 50.2 % (37.0-47.0); Hemoglobin 13.4 g/dL (12.0-15.0); Immature Granulocyte Absolute 0.02 K/mm3 (0.00-0.031); Immature Granulocyte Percent A 0.5 % (0-0.5); Immature Platelet Fraction Pct 11.1 % (0.9-11.2); Lymphocytes Absolute Auto 0.96 K/mm3 (0.9-3.2); Lymphocytes Percent Auto 22.1 % (18.3-44.2); Mean Corpuscular HGB Conc 26.7 g/dl (32-36); Mean Corpuscular Hemoglobin 21.1 pg (26-34); Mean Corpuscular Volume 79.2 fl (80-100); Monocytes Absolute Auto 0.5 K/mm3 (0.1-0.6); Neutrophils Absolute Auto 2.8 K/mm3 (1.3-6.7); Neutrophils Percent Auto 65.2 % (45.5-73.1); Platelet Count Result 179 k/mm3 (150-375); Red Blood Count 6.34 M/mm3 (4.2-5.4); Red Cell Distribution Width 19.2 % (11.5-14.5); White Blood Count 4.4 K/mm3 (4.5-10.0)
[2023-11-17 05:36] LABS: Alanine Aminotransferase 38 U/L (6-35); Albumin Level 3.5 g/dL (3.5-5.1); Alkaline Phosphatase 65 U/L (38-126); Aspartate Amino Transferase 31 U/L (14-36); Bilirubin,Total 1.1 mg/dL (0.2-1.3); Blood Urea Nitrogen 39 mg/dL (7-17); Calcium 8.7 mg/dL (8.4-10.2); Carbon Dioxide > 40 mmol/L (22-30); Chloride 90 mmol/L (98-107); Estimated CRCL calculation 100 ml/min; Estimated Glomerular Filt Rate > 60; Glucose 98 mg/dL (65-110); Potassium 3.6 mmol/L (3.4-5.0); Sodium 139 mmol/L (137-145)
[2023-11-17 05:52] LABS: Platelet Estimate Adequate (Adequate)
[2023-11-17 05:53] LABS: Anisocytosis 1+ (NORMAL); Hypochromasia 1+ (NORMAL); Microcytosis 1+ (NORMAL); Schistocytes None Seen (NORMAL)
[2023-11-17] MEDS: LEVOTHYROXINE SODIUM 100 MCG TABLET 200 MCG PO (06:10)
[2023-11-17] MEDS: LEVOTHYROXINE SODIUM 88 MCG TABLET PO (06:11)
[2023-11-17] MEDS: ENOXAPARIN 80 MG/0.8 ML SYRINGE 160 MG SUB-Q ×2 (08:52→20:59)
[2023-11-17] MEDS: PROPRANOLOL HCL 20 MG TABLET PO ×2 (08:53→20:59)
[2023-11-17] MEDS: BISACODYL 10 MG SUPPOSITORY RECTAL (08:53)
[2023-11-17] MEDS: FUROSEMIDE INJ 40 MG/4 ML VIAL IV PUSH ×2 (08:53→18:08)
[2023-11-17] MEDS: BISACODYL 5 MG TABLET EC PO ×2 (08:54→18:08)
[2023-11-17] MEDS: polyethylene glycoL 3350 17 GM POWD.PACK PO (08:54)
--- NOTE | 2023-11-17 09:14 | P.PNIM_ITS ---
Progress Note: A&P Assessment and Plan (1) Acute respiratory failure with hypoxia: Code(s): J96.01 - Acute respiratory failure with hypoxia Status: Acute Assessment and Plan: related to COVID pneumonia possible PE that was unable to be ruled out so is being treated with therapeutic Lovenox twice daily (2) COVID-19: Code(s): U07.1 - COVID-19 Status: Acute Assessment and Plan: Covid positive since 10/31/23 but now hypoxic and worsening, Remdesivir and dexa methasone on board. D-Dimer positive but patient unable to tolerate or fit in CT scan, not able to do VQ scan. 11/12: baricitinib ordered at request of pulmonology 11/14: per conversation with Dr. aMr, continue remdesivir for 10 days total, dexamethasone for 10 days and complete course of baricitinib. (3) Chronic venous stasis dermatitis of both lower extremities: Onset Date: ~1999 Code(s): I87.2 - Venous insufficiency (chronic) (peripheral) Status: Acute Assessment and Plan: Swelling is improved as evidenced by deep seated wrinkles on the top of the feet and bilateral lower legs. States her legs/feet feel better with some of the fluid gone Continue diuretics (4) Chronic obstructive pulmonary disease: Code(s): J44.9 - Chronic obstructive pulmonary disease, unspecified Status: Acute Assessment and Plan: Continue nebs (5) Congestive heart failure: Qualifiers: Heart failure type: diastolic Heart failure chronicity: acute on chronic Qualified Code(s): I50.33 - Acute on chronic diastolic (congestive) heart failure Code(s): I50.9 - Heart failure, unspecified Status: Acute Assessment and Plan: Echo reviewed Grade 1 diastolic dysfunction. Continue diuretics (6) Respiratory failure with hypoxia and hypercapnia: Code(s): J96.91 - Respiratory failure, unspecified with hypoxia; J96.92 - Respiratory failure, unspecified with hypercapnia Status: Acute Assessment and Plan: Multifactorial respiratory failure with hypoxia and hypercarbia Improved with AVAPS and diuretics Continue Lasix, continue AVAPS as per pulmonology Will transition patient to nasal cannula this morning and see how she tolerates She is on Anoro Ellipta bronchodilators dexamethasone Not on antibiotics She is on empiric anticoagulation and CTA lung is ordered to rule out PE 11/15: Patient is unable to tolerate CTA unable to lay flat or raise her arms above her head. Thus, we will continue treatment dosing for presumed PE Plan code status: Full code Time Spent With Patient Time with patient: 15 - 25 minutes Subjective Date/time seen: 11/17/23 09:14 Interval history: H&P 11/10:? This is a 68-year-old female with? History of hypertension, hyperlipidemia, congestive heart failure, chronic obstructive pulmonary disease, obstructive sleep apnea, and morbid obesity who presented to the emergency department via EMS from home for evaluation of shortness of breath. The patient provides the following history. She has not been feeling well for couple of weeks and tested positive for COVID on 10/31/2023. She continues to have symptoms to include sinus congestion, sore throat, productive cough, weakness, and shortness of breath. She has been using a nebulizer at home without much benefit. Today she reportedly had an SpO2 in the 70s on EMS arrival and on arrival to the ED she received a nebulizer treatment and 6 mg of dexamethasone with improvement in her work of breathing. She reports feeling a lot better at the time my evaluation. She denies fever, chest pain, pleuritic pain, nausea, vomiting,
[2023-11-17] MEDS: UMECLIDINIUM/VILANTEROL 62.5-25 MCG ELLIPTA 1 PUFF INHALATION (10:19)
[2023-11-17 12:27] LABS: Adenovirus DNA Not Detected (Not Detected); Chlamydophila pneumoniae Not Detected (Not Detected); Coronavirus 229E Not Detected (Not Detected); Coronavirus HKU1 Not Detected (Not Detected); Coronavirus NL63 Not Detected (Not Detected); Coronavirus OC43 Not Detected (Not Detected); Human Metapneumovirus Not Detected (Not Detected); Human Parainfluenza Virus 1 Not Detected (Not Detected); Human Parainfluenza Virus 2 Not Detected (Not Detected); Human Parainfluenza Virus 3 Not Detected (Not Detected); Human Parainfluenza Virus 4 Not Detected (Not Detected); Human RSV B Not Detected (Not Detected); Influenza A Not Detected (Not Detected); Influenza B Not Detected (Not Detected); Mycoplasma pneumoniae Not Detected (Not Detected); Rhinovirus/Enterovirus Not Detected (Not Detected)
[2023-11-17] MEDS: BARICITINIB 2 MG TABLET 4 MG PO (12:50)
[2023-11-17] MEDS: REMDESIVIR 100 MG/NS 250 ML 100 MG/250 ML BAG 250 MG IVPB (22:25)
[2023-11-18] VITALS (16 sets, daily range): BP systolic 136–178; BP diastolic 59–72; PULSE 49–87; RESP 20–22; TEMP 35.7–36.4; O2SAT 90–98
[2023-11-18 05:08] LABS: Basophils Percent Auto 0.1 % (0.2-1.2); Hematocrit 51.2 % (37.0-47.0); Hemoglobin 14.1 g/dL (12.0-15.0); Immature Granulocyte Absolute 0.02 K/mm3 (0.00-0.031); Immature Granulocyte Percent A 0.3 % (0-0.5); Immature Platelet Fraction Pct 14.2 % (0.9-11.2); Lymphocytes Absolute Auto 0.97 K/mm3 (0.9-3.2); Lymphocytes Percent Auto 12.3 % (18.3-44.2); Mean Corpuscular HGB Conc 27.5 g/dl (32-36); Mean Corpuscular Hemoglobin 21.5 pg (26-34); Mean Corpuscular Volume 77.9 fl (80-100); Monocytes Absolute Auto 0.8 K/mm3 (0.1-0.6); Monocytes Percent Auto 9.5 % (2.6-8.5); Neutrophils Absolute Auto 6.1 K/mm3 (1.3-6.7); Neutrophils Percent Auto 77.8 % (45.5-73.1); Platelet Count Result 214 k/mm3 (150-375); Red Blood Count 6.57 M/mm3 (4.2-5.4); Red Cell Distribution Width 19.3 % (11.5-14.5); White Blood Count 7.9 K/mm3 (4.5-10.0)
[2023-11-18 05:19] LABS: Blood Urea Nitrogen 44 mg/dL (7-17); Calcium 9.2 mg/dL (8.4-10.2); Carbon Dioxide > 40 mmol/L (22-30); Chloride 90 mmol/L (98-107); Estimated CRCL calculation 72 ml/min; Estimated Glomerular Filt Rate > 60; Glucose 104 mg/dL (65-110); Potassium 3.6 mmol/L (3.4-5.0); Sodium 138 mmol/L (137-145)
[2023-11-18 05:35] LABS: Anisocytosis 1+ (NORMAL); Large Platelets Present; Ovalocytes 1+ (NORMAL); Platelet Estimate Adequate (Adequate); Schistocytes None Seen (NORMAL)
[2023-11-18] MEDS: LEVOTHYROXINE SODIUM 100 MCG TABLET 200 MCG PO (05:43)
[2023-11-18] MEDS: LEVOTHYROXINE SODIUM 88 MCG TABLET PO (05:43)
[2023-11-18] MEDS: BISACODYL 5 MG TABLET EC PO ×2 (08:36→17:30)
[2023-11-18] MEDS: PROPRANOLOL HCL 20 MG TABLET PO ×2 (08:37→21:22)
[2023-11-18] MEDS: FUROSEMIDE INJ 40 MG/4 ML VIAL IV PUSH ×2 (08:37→17:30)
[2023-11-18] MEDS: ENOXAPARIN 80 MG/0.8 ML SYRINGE 160 MG SUB-Q (08:37)
[2023-11-18] MEDS: UMECLIDINIUM/VILANTEROL 62.5-25 MCG ELLIPTA 1 PUFF INHALATION (09:15)
--- NOTE | 2023-11-18 11:21 | PCNWS ---
Weekly nutritional screen. Patient is tolerating current heart healthy diet with adequate intake at 100% most all meals. No nutritional needs at this time.
[2023-11-18] MEDS: BARICITINIB 2 MG TABLET 4 MG PO (11:34)
--- NOTE | 2023-11-18 12:47 | PM.IMPN ---
Progress Note: A&P Assessment and Plan (1) Acute respiratory failure with hypoxia: Code(s): J96.01 - Acute respiratory failure with hypoxia Status: Acute Assessment and Plan: related to COVID pneumonia possible PE that was unable to be ruled out so is being treated with therapeutic Lovenox twice daily (2) COVID-19: Code(s): U07.1 - COVID-19 Status: Acute Assessment and Plan: Covid positive since 10/31/23 but now hypoxic and worsening, Remdesivir and dexamethasone on board. D-Dimer positive but patient unable to tolerate or fit in CT scan, not able to do VQ scan. 11/12: baricitinib ordered at request of pulmonology 11/14: per conversation with Dr. Mar, continue remdesivir for 10 days total, dexamethasone for 10 days and complete course of baricitinib. (3) Chronic venous stasis dermatitis of both lower extremities: Onset Date: ~1999 Code(s): I87.2 - Venous insufficiency (chronic) (peripheral) Status: Acute Assessment and Plan: Swelling is improved as evidenced by deep seated wrinkles on the top of the feet and bilateral lower legs. States her legs/feet feel better with some of the fluid gone Continue diuretics (4) Chronic obstructive pulmonary disease: Code(s): J44.9 - Chronic obstructive pulmonary disease, unspecified Status: Acute Assessment and Plan: Continue nebs (5) Congestive heart failure: Qualifiers: Heart failure type: diastolic Heart failure chronicity: acute on chronic Qualified Code(s): I50.33 - Acute on chronic diastolic (congestive) heart failure Code(s): I50.9 - Heart failure, unspecified Status: Acute Assessment and Plan: Echo reviewed Grade 1 diastolic dysfunction. Continue diuretics (6) Respiratory failure with hypoxia and hypercapnia: Code(s): J96.91 - Respiratory failure, unspecified with hypoxia; J96.92 - Respiratory failure, unspecified with hypercapnia Status: Acute Assessment and Plan: Multifactorial respiratory failure with hypoxia and hypercarbia Improved with AVAPS and diuretics Continue Lasix, continue AVAPS as per pulmonology Will transition patient to nasal cannula this morning and see how she tolerates She is on Anoro Ellipta bronchodilators dexamethasone Not on antibiotics She is on empiric anticoagulation and CTA lung is ordered to rule out PE 11/15: Patient is unable to tolerate CTA unable to lay flat or raise her arms above her head. Thus, we will continue treatment dosing for presumed PE Plan code status: Full code PT OT and begin SNF discharge planning, will need home O2 eval and noninvasive ventilator upon discharge Time Spent With Patient Time with patient: 25 - 35 minutes Subjective Date/time seen: 11/18/23 12:47 Interval history: H&P 11/10:? This is a 68-year-old female with? History of hypertension, hyperlipidemia, congestive heart failure, chronic obstructive pulmonary disease, obstructive sleep apnea, and morbid obesity who presented to the emergency department via EMS from home for evaluation of shortness of breath. The patient provides the following history. She has not been feeling well for couple of weeks and tested positive for COVID on 10/31/2023. She continues to have symptoms to include sinus congestion, sore throat, productive cough, weakness, and shortness of breath. She has been using a nebulizer at home without much benefit. Today she reportedly had an SpO2 in the 70s on EMS arrival and on arrival to the ED she received a nebulizer treatment and 6 mg of dexamethasone with improvement in her work of breathing. She reports feeling a lot better at the time my evaluation. She denies fever, chest pain, pleuritic pain, nausea, vomiting, and diarrhea. She does however report having a poor appetite as nothing sounds or tastes good since being diagnosed with COVID. 11/11: Patient still having significant dyspnea with any activity.? She is on high flow n
[2023-11-18 18:41] LABS: Alanine Aminotransferase 39 U/L (6-35); Albumin Level 3.9 g/dL (3.5-5.1); Alkaline Phosphatase 72 U/L (38-126); Aspartate Amino Transferase 30 U/L (14-36); Bilirubin,Total 1.3 mg/dL (0.2-1.3)
[2023-11-18 19:13] LABS: Prothrombin Time 13.7 Seconds (11.1-14.7)
[2023-11-18] MEDS: REMDESIVIR 100 MG/NS 250 ML 100 MG/250 ML BAG 250 MG IVPB (21:22)
[2023-11-18] MEDS: ENOXAPARIN 80 MG/0.8 ML SYRINGE 150 MG SUB-Q (21:23)
[2023-11-19] VITALS (15 sets, daily range): BP systolic 126–152; BP diastolic 52–64; PULSE 52–64; RESP 17–24; TEMP 36.1–36.4; O2SAT 93–96
[2023-11-19 04:38] LABS: Basophils Percent Auto 0.1 % (0.2-1.2); Hematocrit 48.7 % (37.0-47.0); Hemoglobin 13.6 g/dL (12.0-15.0); Immature Granulocyte Absolute 0.04 K/mm3 (0.00-0.031); Immature Granulocyte Percent A 0.4 % (0-0.5); Immature Platelet Fraction Pct 17.8 % (0.9-11.2); Lymphocytes Percent Auto 9.1 % (18.3-44.2); Mean Corpuscular HGB Conc 27.9 g/dl (32-36); Mean Corpuscular Hemoglobin 21.7 pg (26-34); Mean Corpuscular Volume 77.5 fl (80-100); Monocytes Absolute Auto 0.9 K/mm3 (0.1-0.6); Monocytes Percent Auto 8.3 % (2.6-8.5); Neutrophils Absolute Auto 9.1 K/mm3 (1.3-6.7); Neutrophils Percent Auto 82.1 % (45.5-73.1); Platelet Count Result 177 k/mm3 (150-375); Red Blood Count 6.28 M/mm3 (4.2-5.4); Red Cell Distribution Width 19.3 % (11.5-14.5)
[2023-11-19 04:50] LABS: Alanine Aminotransferase 37 U/L (6-35); Albumin Level 3.7 g/dL (3.5-5.1); Alkaline Phosphatase 72 U/L (38-126); Aspartate Amino Transferase 29 U/L (14-36); Bilirubin,Total 1.2 mg/dL (0.2-1.3); Blood Urea Nitrogen 46 mg/dL (7-17); Calcium 9.4 mg/dL (8.4-10.2); Carbon Dioxide > 40 mmol/L (22-30); Chloride 89 mmol/L (98-107); Estimated CRCL calculation 81 ml/min; Estimated Glomerular Filt Rate > 60; Glucose 107 mg/dL (65-110); Potassium 3.3 mmol/L (3.4-5.0); Sodium 137 mmol/L (137-145)
[2023-11-19] MEDS: LEVOTHYROXINE SODIUM 88 MCG TABLET PO (05:40)
[2023-11-19] MEDS: LEVOTHYROXINE SODIUM 100 MCG TABLET 200 MCG PO (05:40)
[2023-11-19 07:47] LABS: Magnesium 2.1 mg/dL (1.6-2.3); Phosphorus 3.7 mg/dL (2.5-4.5)
[2023-11-19 08:17] LABS: NT Pro B Type Natriuretic Pept 114 pg/mL (19.9-100)
--- NOTE | 2023-11-19 08:20 | PM.IMPN ---
Progress Note: A&P Assessment and Plan (1) Acute respiratory failure with hypoxia: Code(s): J96.01 - Acute respiratory failure with hypoxia Status: Acute Assessment and Plan: related to COVID pneumonia possible PE that was unable to be ruled out so is being treated with therapeutic Lovenox twice daily (2) COVID-19: Code(s): U07.1 - COVID-19 Status: Acute Assessment and Plan: Covid positive since 10/31/23 but now hypoxic and worsening, Remdesivir and dexamethasone on board. D-Dimer positive but patient unable to tolerate or fit in CT scan, not able to do VQ scan. 11/12: baricitinib ordered at request of pulmonology 11/14: per conversation with Dr. Mar, continue remdesivir for 10 days total, dexamethasone for 10 days and complete course of baricitinib. 11/19: baricitinib discontinued per Dr. Mar, today is last day for remdesivir (3) Chronic venous stasis dermatitis of both lower extremities: Onset Date: ~1999 Code(s): I87.2 - Venous insufficiency (chronic) (peripheral) Status: Acute Assessment and Plan: Swelling is improved as evidenced by deep seated wrinkles on the top of the feet and bilateral lower legs. States her legs/feet feel better with some of the fluid gone Continue diuretics 11/19: furosemide 40 IV daily instead of BID now. (4) Chronic obstructive pulmonary disease: Code(s): J44.9 - Chronic obstructive pulmonary disease, unspecified Status: Acute Assessment and Plan: Continue nebs (5) Congestive heart failure: Qualifiers: Heart failure type: diastolic Heart failure chronicity: acute on chronic Qualified Code(s): I50.33 - Acute on chronic diastolic (congestive) heart failure Code(s): I50.9 - Heart failure, unspecified Status: Acute Assessment and Plan: Echo reviewed Grade 1 diastolic dysfunction. Continue diuretics (6) Respiratory failure with hypoxia and hypercapnia: Code(s): J96.91 - Respiratory failure, unspecified with hypoxia; J96.92 - Respiratory failure, unspecified with hypercapnia Status: Acute Assessment and Plan: Multifactorial respiratory failure with hypoxia and hypercarbia Improved with AVAPS and diuretics Continue Lasix, continue AVAPS as per pulmonology Will transition patient to nasal cannula this morning and see how she tolerates She is on Anoro Ellipta bronchodilators dexamethasone Not on antibiotics She is on empiric anticoagulation and CTA lung is ordered to rule out PE 11/15: Patient is unable to tolerate CTA unable to lay flat or raise her arms above her head. Thus, we will continue treatment dosing for presumed PE Plan code status: Full code PT OT and begin SNF discharge planning, will need home O2 and noninvasive ventilator orders upon discharge Time Spent With Patient Time with patient: 25 - 35 minutes Subjective Date/time seen: 11/19/23 08:20 Interval history: H&P 11/10:? This is a 68-year-old female with? History of hypertension, hyperlipidemia, congestive heart failure, chronic obstructive pulmonary disease, obstructive sleep apnea, and morbid obesity who presented to the emergency department via EMS from home for evaluation of shortness of breath. The patient provides the following history. She has not been feeling well for couple of weeks and tested positive for COVID on 10/31/2023. She continues to have symptoms to include sinus congestion, sore throat, productive cough, weakness, and shortness of breath. She has been using a nebulizer at home without much benefit. Today she reportedly had an SpO2 in the 70s on EMS arrival and on arrival to the ED she received a nebulizer treatment and 6 mg of dexamethasone with improvement in her work of breathing. She reports feeling a lot better at the time my evaluation. She denies fever, chest pain, pleuritic pain, nausea, vomiting, and diarrhea. She does however report having a poor appetite as nothing sounds or tas
[2023-11-19] MEDS: FUROSEMIDE INJ 40 MG/4 ML VIAL IV PUSH (09:24)
[2023-11-19] MEDS: POTASSIUM CHLORIDE 20 MEQ ER TABLET 40 MEQ PO (09:24)
[2023-11-19] MEDS: PROPRANOLOL HCL 20 MG TABLET PO ×2 (09:25→21:27)
[2023-11-19] MEDS: ENOXAPARIN 80 MG/0.8 ML SYRINGE 150 MG SUB-Q ×2 (09:26→21:27)
[2023-11-19] MEDS: POTASSIUM CHLORIDE INJ 40 MEQ in SODIUM CHLORIDE 0.9% IV 500 ML 130 MEQ IVPB (10:06)
--- NOTE | 2023-11-19 11:54 | PM.PNPUL ---
Progress Note: A&P Assessment and Plan (1) COVID-19: Code(s): U07.1 - COVID-19 Status: Acute Assessment and Plan: Patient tested positive for COVID-19 on 10/31/23 and started on remdesivir, dexamethasone on 11/10/23 and started on baricitinib on 11/12/23tocilizumab on 07/15. Remdesivir for 10 days Unless he should recover and tolerate room air with rest, ambulation and while sleeping. - Dexamethasone 6 mg IV for 10 days - Continuous pulse oximetry - Avoid any fluid overload. - Anoro Ellipta for COPD and wheezes. - Will check COVID, RSV and influenza swab. - I will check respiratory pathogen panel -agree with no antibiotics at this point Unable to perform CT angiogram of the chest because of patient's inability to raise her arms over her head, lay flat and claustrophobia. She declined CT angiogram at this time. Patient is on full-dose Lovenox. I will check a D-dimer. I will check a procalcitonin. Keep saturations are 90-94% with nasal cannula up to 15 L, if fails then Airvo high flow nasal cannula. I discussed code status with patient and she would like to discuss this with her family. 11/13: Patient was off the noninvasive ventilator throughout the day yesterday but wore the AVAPS mode overnight. Currently she is on noninvasive ventilator with the AVAPS mode and the above-mentioned settings at 45% with saturations 99%. Patient states she is breathing a little bit better. She has less shortness of breath. White blood cell count is 3.8, creatinine is 0.9. Plan: Continue dexamethasone, remdesivir both day 4. Continue baricitinib, day 2. Wean FiO2 as tolerated. Patient is on full-dose anticoagulation for possible PE. Will attempt to get CT angiogram. 11/14: Patient continues to slowly improve. She tells me she has 20-30% back to her normal. She is tolerating the noninvasive ventilator at night. She has no wheezing on exam. White blood cell count 4.5, creatinine 0.7. Chest x-ray with left lower lobe consolidation and mild diffuse interstitial alveolar infiltrates throughout. Currently she is on 5 L nasal cannula saturations 91%. Plan: Continue dexamethasone, remdesivir both day 5. Continue baricitinib, day 3. Wean FiO2 as tolerated. Patient is on full-dose anticoagulation for possible PE. Patient tells me she cannot receive a CT scan because she is severely claustrophobic and can not breathe when she sees the CT scanner. 11/15: Continue dexamethasone, remdesivir day 6, and baricitinib day 4. Wean FiO2 as tolerated. Patient is on full-dose anticoagulation for possible PE, cannot have CT scan because she is severely claustrophobic and can not breathe when she sees the CT scanner. 11/16: Continue dexamethasone, remdesivir day 7, and baricitinib day 5. On 6 L/min with saturation 95%. 11/19: Continue dexamethasone, remdesivir day 10, and baricitinib day 7. On 6 L/min with saturation 95%. Plan: Will DC dexamethasone, remdesivir after today's doses. Patient's oxygenation has been stable and her low oxygen is likely related to non COVID issues at this point and I will discontinue baricitinib after today's dose. Discussed with Ashish Dow, will follow with you (2) Respiratory failure with hypoxia and hypercapnia: Code(s): J96.91 - Respiratory failure, unspecified with hypoxia; J96.92 - Respiratory failure, unspecified with hypercapnia Status: Acute Assessment and Plan: Etiology of hypoxic respiratory failure is likely COVID pneumonia. Her BNP is mildly elevated at 221. She has pedal edema. She has normal LV systolic function on her echocardiogram. She also has untreated obstructive sleep apnea. 12:13 Plan: When she naps or sleeps she should wear noninvasive ventilation with the AVAPS mode. When she is awake. keep saturations are 90-94% with nasal cannula up to 15 L, if fails then Airvo high flow nasal cannula. 14:
[2023-11-19 16:52] LABS: Alveolar/Arterial O2 Gradient 194.2 mmHg; Base Excess ABG 10.9 mEq/l (+/-2.0); Fractional Inspired Oxygen 44 %; HCO3 ABG 34.4 mEq/l (22.0-26.0); Oxygen Content ABG 19.3 %vol (16.0-22.0); Oxygen Saturation ABG 96.2 % (95.0-100.0); Oxyhemoglobin 94.4 % THb (90.0-100.0); PCO2 ABG 40.8 mmHg (35.0-45.0); PO2 FiO2 Ratio Arterial Blood 1.66 %; Total Hemoglobin 14.5 g/dL (12.0-18.0)
[2023-11-19 16:56] LABS: Device NASAL CANNULA; Site Drawn RIGHT BRACHIAL; pH ABG 7.544 (7.350-7.450)
[2023-11-19] MEDS: REMDESIVIR 100 MG/NS 250 ML 100 MG/250 ML BAG 250 MG IVPB (21:26)
[2023-11-20] VITALS (14 sets, daily range): BP systolic 118–148; BP diastolic 39–68; PULSE 48–85; RESP 16–20; TEMP 35.8–36.4; O2SAT 93–97
[2023-11-20 05:42] LABS: Base Excess ABG 14.1 mEq/l (+/-2.0); Fractional Inspired Oxygen 44 %; HCO3 ABG 39.4 mEq/l (22.0-26.0); Oxygen Content ABG 18.4 %vol (16.0-22.0); Oxygen Saturation ABG 95.7 % (95.0-100.0); Oxyhemoglobin 94.6 % THb (90.0-100.0); PCO2 ABG 51.2 mmHg (35.0-45.0); PO2 ABG 73.4 mmHg (80.0-100.0); PO2 FiO2 Ratio Arterial Blood 1.67 %; Total Hemoglobin 13.8 g/dL (12.0-18.0)
[2023-11-20 05:44] LABS: Device HIGH FLOW NASAL CANN; Modified Allen's Test Pass; Site Drawn LEFT RADIAL; pH ABG 7.504 (7.350-7.450)
[2023-11-20] MEDS: LEVOTHYROXINE SODIUM 88 MCG TABLET PO (06:25)
[2023-11-20] MEDS: LEVOTHYROXINE SODIUM 100 MCG TABLET 200 MCG PO (06:25)
--- NOTE | 2023-11-20 06:37 | PCRCNOTE ---
APNEA LINK incomplete the night of 11/19/23, pt wanted to come off her PAP unit due to nausea, pt came off unit at 0200. Not enough coverage completed for a accurate study.
[2023-11-20 07:01] LABS: Basophils Percent Auto 0.1 % (0.2-1.2); Hematocrit 47.8 % (37.0-47.0); Hemoglobin 12.9 g/dL (12.0-15.0); Immature Granulocyte Percent A 0.7 % (0-0.5); Immature Platelet Fraction Pct 23.1 % (0.9-11.2); Lymphocytes Absolute Auto 1.02 K/mm3 (0.9-3.2); Lymphocytes Percent Auto 7.2 % (18.3-44.2); Mean Corpuscular Hemoglobin 21.3 pg (26-34); Monocytes Absolute Auto 1.5 K/mm3 (0.1-0.6); Monocytes Percent Auto 10.4 % (2.6-8.5); Neutrophils Absolute Auto 11.5 K/mm3 (1.3-6.7); Neutrophils Percent Auto 81.6 % (45.5-73.1); Platelet Count Result 171 k/mm3 (150-375); Red Blood Count 6.05 M/mm3 (4.2-5.4); Red Cell Distribution Width 19.4 % (11.5-14.5); White Blood Count 14.1 K/mm3 (4.5-10.0)
[2023-11-20 07:18] LABS: Alanine Aminotransferase 32 U/L (6-35); Albumin Level 3.7 g/dL (3.5-5.1); Alkaline Phosphatase 72 U/L (38-126); Aspartate Amino Transferase 30 U/L (14-36); Bilirubin,Total 1.2 mg/dL (0.2-1.3); Blood Urea Nitrogen 43 mg/dL (7-17); Calcium 9.2 mg/dL (8.4-10.2); Carbon Dioxide > 40 mmol/L (22-30); Chloride 91 mmol/L (98-107); Estimated CRCL calculation 72 ml/min; Estimated Glomerular Filt Rate > 60; Glucose 106 mg/dL (65-110); Magnesium 2.2 mg/dL (1.6-2.3); Potassium 4.3 mmol/L (3.4-5.0); Sodium 137 mmol/L (137-145)
[2023-11-20 08:36] LABS: Hypochromasia 1+ (NORMAL); Platelet Estimate Adequate (Adequate)
[2023-11-20 08:37] LABS: Anisocytosis 1+ (NORMAL); Schistocytes None Seen (NORMAL)
[2023-11-20] MEDS: HYDROcodone/acetaminophen (*CRX) 5-325 MG TABLET 1 TAB PO (08:39)
[2023-11-20] MEDS: UMECLIDINIUM/VILANTEROL 62.5-25 MCG ELLIPTA 1 PUFF INHALATION (08:40)
[2023-11-20] MEDS: BISACODYL 5 MG TABLET EC PO ×2 (08:40→17:12)
[2023-11-20] MEDS: PROPRANOLOL HCL 20 MG TABLET PO (08:40)
[2023-11-20] MEDS: FUROSEMIDE INJ 40 MG/4 ML VIAL IV PUSH (08:41)
[2023-11-20] MEDS: ENOXAPARIN 80 MG/0.8 ML SYRINGE 150 MG SUB-Q ×2 (08:41→20:25)
--- NOTE | 2023-11-20 12:42 | PM.IMPN ---
Progress Note: A&P Assessment and Plan (1) Acute respiratory failure with hypoxia: Code(s): J96.01 - Acute respiratory failure with hypoxia Status: Acute Assessment and Plan: related to COVID pneumonia possible PE that was unable to be ruled out so is being treated with therapeutic Lovenox twice daily (2) COVID-19: Code(s): U07.1 - COVID-19 Status: Acute Assessment and Plan: Covid positive since 10/31/23 but now hypoxic and worsening, Remdesivir and dexamethasone on board. D-Dimer positive but patient unable to tolerate or fit in CT scan, not able to do VQ scan. 11/12: baricitinib ordered at request of pulmonology 11/14: per conversation with Dr. Mar, continue remdesivir for 10 days total, dexamethasone for 10 days and complete course of baricitinib. 11/19: baricitinib discontinued per Dr. Mar, today is last day for remdesivir (3) Chronic venous stasis dermatitis of both lower extremities: Onset Date: ~1999 Code(s): I87.2 - Venous insufficiency (chronic) (peripheral) Status: Acute Assessment and Plan: Swelling is improved as evidenced by deep seated wrinkles on the top of the feet and bilateral lower legs. States her legs/feet feel better with some of the fluid gone Continue diuretics 11/19: furosemide 40 IV daily instead of BID now. (4) Chronic obstructive pulmonary disease: Code(s): J44.9 - Chronic obstructive pulmonary disease, unspecified Status: Acute Assessment and Plan: Continue nebs, patient requires continuous high-flow nasal cannula 6 liters/minute now and AVAPS at night (5) Congestive heart failure: Qualifiers: Heart failure type: diastolic Heart failure chronicity: acute on chronic Qualified Code(s): I50.33 - Acute on chronic diastolic (congestive) heart failure Code(s): I50.9 - Heart failure, unspecified Status: Acute Assessment and Plan: Echo reviewed Grade 1 diastolic dysfunction. Continue diuretics (6) Respiratory failure with hypoxia and hypercapnia: Code(s): J96.91 - Respiratory failure, unspecified with hypoxia; J96.92 - Respiratory failure, unspecified with hypercapnia Status: Acute Assessment and Plan: Multifactorial respiratory failure with hypoxia and hypercarbia Improved with AVAPS and diuretics Continue Lasix, continue AVAPS as per pulmonology Will transition patient to nasal cannula this morning and see how she tolerates She is on Anoro Ellipta bronchodilators dexamethasone Not on antibiotics She is on empiric anticoagulation and CTA lung is ordered to rule out PE 11/15: Patient is unable to tolerate CTA unable to lay flat or raise her arms above her head. Thus, we will continue treatment dosing for presumed PE Plan code status: Full code Patient stable for SNF once authorization is ready Time Spent With Patient Time with patient: 25 - 35 minutes Subjective Date/time seen: 11/20/23 12:42 Interval history: H&P 11/10:? This is a 68-year-old female with? History of hypertension, hyperlipidemia, congestive heart failure, chronic obstructive pulmonary disease, obstructive sleep apnea, and morbid obesity who presented to the emergency department via EMS from home for evaluation of shortness of breath. The patient provides the following history. She has not been feeling well for couple of weeks and tested positive for COVID on 10/31/2023. She continues to have symptoms to include sinus congestion, sore throat, productive cough, weakness, and shortness of breath. She has been using a nebulizer at home without much benefit. Today she reportedly had an SpO2 in the 70s on EMS arrival and on arrival to the ED she received a nebulizer treatment and 6 mg of dexamethasone with improvement in her work of breathing. She reports feeling a lot better at the time my evaluation. She denies fever, chest pain, pleuritic pain, nausea, vomiting, and diarrhea. She does however report having a poor
--- NOTE | 2023-11-20 18:15 | PC.NURSE ---
Received from [facility]/ via specialty bed. Brewer draining clear yellow urine.
--- NOTE | 2023-11-20 20:01 | P.PNPL_ITS ---
Progress Note: A&P Assessment and Plan (1) COVID-19: Code(s): U07.1 - COVID-19 Status: Acute Assessment and Plan: Patient tested positive for COVID-19 on 10/31/23 and started on remdesivir, dexamethasone on 11/10/23 and started on baricitinib on 11/12/23tocilizumab on 07/15. Remdesivir for 10 days Unless he should recover and tolerate room air with rest, ambulation and while sleeping. - Dexamethasone 6 mg IV for 10 days - Continuous pulse oximetry - Avoid any fluid overload. - Anoro Ellipta for COPD and wheezes. - Will check COVID, RSV and influenza swab. - I will check respiratory pathogen panel -agree with no antibiotics at this point Unable to perform CT angiogram of the chest because of patient's inability to raise her arms over her head, lay flat and claustrophobia. She declined CT angiogram at this time. Patient is on full-dose Lovenox. I will check a D- dimer. I will check a procalcitonin. Keep saturations are 90-94% with nasal cannula up to 15 L, if fails then Airvo high flow nasal cannula. I discussed code status with patient and she would like to discuss this with her family. 11/13: Patient was off the noninvasive ventilator throughout the day yesterday but wore the AVAPS mode overnight. Currently she is on noninvasive ventilator with the AVAPS mode and the above-mentioned settings at 45% with saturations 99%. Patient states she is breathing a little bit better. She has less shortness of breath. White blood cell count is 3.8, creatinine is 0.9. Plan: Continue dexamethasone, remdesivir both day 4. Continue baricitinib, day 2. Wean FiO2 as tolerated. Patient is on full-dose anticoagulation for possible PE. Will attempt to get CT angiogram. 11/14: Patient continues to slowly improve. She tells me she has 20-30% back to her normal. She is tolerating the noninvasive ventilator at night. She has no wheezing on exam. White blood cell count 4.5, creatinine 0.7. Chest x-ray with left lower lobe consolidation and mild diffuse interstitial alveolar infiltrates throughout. Currently she is on 5 L nasal cannula saturations 91%. Plan: Continue dexamethasone, remdesivir both day 5. Continue baricitinib, day 3. Wean FiO2 as tolerated. Patient is on full-dose anticoagulation for possible PE. Patient tells me she cannot receive a CT scan because she is severely claustrophobic and can not breathe when she sees the CT scanner. 11/15: Continue dexamethasone, remdesivir day 6, and baricitinib day 4. Wean FiO2 as tolerated. Patient is on full-dose anticoagulation for possible PE, cannot have CT scan because she is severely claustrophobic and can not breathe when she sees the CT scanner. 11/16: Continue dexamethasone, remdesivir day 7, and baricitinib day 5. On 6 L/min with saturation 95%. 11/19: Continue dexamethasone, remdesivir day 10, and baricitinib day 7. On 6 L/min with saturation 95%. Plan: Will DC dexamethasone, remdesivir after today's doses. Patient's oxygenation has been stable and her low oxygen is likely related to non COVID issues at this point and I will discontinue baricitinib after today's dose. Discussed with Ashish Dow, will follow with you (2) Respiratory failure with hypoxia and hypercapnia: Code(s): J96.91 - Respiratory failure, unspecified with hypoxia; J96.92 - Respiratory failure, unspecified with hypercapnia Status: Acute Assessment and Plan: Etiology of hypoxic respiratory failure is likely COVID pneumonia. Her BNP is mildly elevated at 221. She has pedal edema. She has normal LV systolic function on her echocardiogra
[2023-11-21] VITALS: BP 124/44; PULSE 51; PULSE 52; RESP 20; TEMP 36; O2SAT 94
[2023-11-21 03:26] VITALS: BP 140/53; PULSE 50; RESP 20; TEMP 36.8; O2SAT 94
[2023-11-21 04:00] VITALS: PULSE 54
[2023-11-21] MEDS: LEVOTHYROXINE SODIUM 100 MCG TABLET 200 MCG PO (05:39)
[2023-11-21] MEDS: LEVOTHYROXINE SODIUM 88 MCG TABLET PO (05:39)
[2023-11-21 06:20] LABS: Potassium 3.6 mmol/L (3.4-5.0)
[2023-11-21 06:25] LABS: Blood Urea Nitrogen 42 mg/dL (7-17); Calcium 9.5 mg/dL (8.4-10.2); Carbon Dioxide > 40 mmol/L (22-30); Chloride 89 mmol/L (98-107); Estimated CRCL calculation 106 ml/min; Estimated Glomerular Filt Rate > 60; Glucose 115 mg/dL (65-110); Magnesium 2.3 mg/dL (1.6-2.3); Sodium 134 mmol/L (137-145)
[2023-11-21 06:27] LABS: Basophils Percent Auto 0.1 % (0.2-1.2); Hematocrit 46.7 % (37.0-47.0); Hemoglobin 12.7 g/dL (12.0-15.0); Immature Granulocyte Absolute 0.08 K/mm3 (0.00-0.031); Immature Granulocyte Percent A 0.7 % (0-0.5); Immature Platelet Fraction Pct 25.4 % (0.9-11.2); Lymphocytes Absolute Auto 0.83 K/mm3 (0.9-3.2); Lymphocytes Percent Auto 7.6 % (18.3-44.2); Mean Corpuscular HGB Conc 27.2 g/dl (32-36); Mean Corpuscular Hemoglobin 21.3 pg (26-34); Mean Corpuscular Volume 78.4 fl (80-100); Monocytes Absolute Auto 1.1 K/mm3 (0.1-0.6); Monocytes Percent Auto 9.8 % (2.6-8.5); Neutrophils Percent Auto 81.8 % (45.5-73.1); Platelet Count Result 156 k/mm3 (150-375); Red Blood Count 5.96 M/mm3 (4.2-5.4); Red Cell Distribution Width 19.3 % (11.5-14.5); White Blood Count 10.9 K/mm3 (4.5-10.0)
[2023-11-21] MEDS: HYDROcodone/acetaminophen (*CRX) 5-325 MG TABLET 1 TAB PO (06:41)
[2023-11-21 08:04] VITALS: PULSE 55
[2023-11-21] MEDS: FUROSEMIDE 40 MG TABLET PO (08:48)
[2023-11-21] MEDS: BISACODYL 5 MG TABLET EC PO (08:48)
[2023-11-21] MEDS: polyethylene glycoL 3350 17 GM POWD.PACK PO (08:49)
[2023-11-21 08:50] VITALS: PULSE 67
[2023-11-21] MEDS: PROPRANOLOL HCL 20 MG TABLET PO (08:50)
[2023-11-21] MEDS: UMECLIDINIUM/VILANTEROL 62.5-25 MCG ELLIPTA 1 PUFF INHALATION (08:59)
[2023-11-21 09:00] VITALS: PULSE 62; RESP 18; O2SAT 93
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
--- NOTE | 2023-11-21 11:55 | PCOTNOTE ---
Attempted to see Patient at this time. Patient verbalized she already performed PT and gave it a try. Patient states she is not strong enough and has severe fear of falling. Patient does not want to participate in any activities at this time. She needs her head to settle down and figure out a way she can feel comfortable.
--- NOTE | 2023-11-21 14:15 | PC.NURSE ---
Pipe Bender spoke with Dr. Vieyra regarding D/C okay to D/C no further orders to be added
== END 2023-11-21 14:50 | DRG 177 ==
LOC: ANHED 11:25 → ANH3MEDSUR 16:05 → ANHICU 11-12 11:21 → ANHIMU 11-14 17:19 → ANH2MED 11-20 17:57
PROVIDERS: Internal Medicine Pulmonary Disease; Physician Assistant; Admitting Provider Family Medicine; Emergency Provider Emergency Medicine; PCP Family Medicine; Visit Provider Nurse Practitioner
DX: U07.1 COVID-19 (principal); I26.99 Other pulmonary embolism without acute cor pulmonale; I50.33 Acute on chronic diastolic (congestive) heart failure; J96.01 Acute respiratory failure with hypoxia; J12.82 Pneumonia due to coronavirus disease 2019; J96.02 Acute respiratory failure with hypercapnia; Z68.45 Body mass index [BMI] 70 or greater, adult; I11.0 Hypertensive heart disease with heart failure; G47.33 Obstructive sleep apnea (adult) (pediatric); E78.5 Hyperlipidemia, unspecified; I87.2 Venous insufficiency (chronic) (peripheral); I89.0 Lymphedema, not elsewhere classified; E66.01 Morbid (severe) obesity due to excess calories; I34.0 Nonrheumatic mitral (valve) insufficiency; I35.8 Other nonrheumatic aortic valve disorders; F40.240 Claustrophobia; Z98.84 Bariatric surgery status; Z87.891 Personal history of nicotine dependence
CPT/HCPCS: 36415; 36569; 36600; 71045; 80048; 80053; 80076; 82728; 82805; 82948; 83036; 83735; 83880; 84100; 84132; 84145; 84439; 84443; 85025; 85027; 85055; 85380; 85610; 86140; 87633; 87637; 93005; 93306; 93970; 94002; 94003; 94640; 94762; 96365; 96375; 97110; 97161; 97166; 97530; 99285; A9270; G0378; J0248; J1100; J1650; J1940; J3480; J7040; Q9957

== ENCOUNTER 2024-06-28 23:46 | Emergency (ER) | payer MEDICARE, MEDICAID, SELFPAY ==
[2024-06-29 00:07] VITALS: BP 150/44; PULSE 72; RESP 15; TEMP 36.2; O2SAT 97
--- NOTE | 2024-06-29 00:16 | PC.NURSE ---
Rn and techs attempted to get pt into bed at this time. Pt is unable to get out of wheelchair due to weight and exceeds weight capacity for lift assistance. Pt was placed in a room with no ceiling assistance. air conditioning coil assembler notified and states that she is fine to stay in wheelchair at this time.
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
[2024-06-29] MEDS: TETANUS,DIPHTHERIA,AC PERTUSSIS ADULT (0.5 ML) BOOSTRIX IM (01:33)
== END 2024-06-29 02:55 ==
PROVIDERS: Emergency Provider Student in an Organized Health Care Education/Training Program; PCP Family Medicine
DX: S81.811A Laceration without foreign body, right lower leg, initial encounter (principal); Z23 Encounter for immunization; I50.9 Heart failure, unspecified; F32.A Depression, unspecified; M19.90 Unspecified osteoarthritis, unspecified site; G47.30 Sleep apnea, unspecified; Z87.891 Personal history of nicotine dependence; W22.8XXA Striking against or struck by other objects, initial encounter
CPT/HCPCS: 12001; 90471; 90715; 99282

== ENCOUNTER 2025-01-10 10:51 | Emergency (ER) | payer MEDICARE, MEDICAID, SELFPAY ==
[2025-01-10] VITALS (9 sets, daily range): BP systolic 142–188; BP diastolic 55–63; PULSE 60–84; RESP 17–24; TEMP 36.2; O2SAT 94–100
--- NOTE | ~2025-01-10 | XR_ITS ---
CHEST RADIOGRAPH CLINICAL HISTORY: sob . COMPARISON: 11/19/2023 TECHNIQUE: Single portable view of the chest. FINDINGS The cardiomediastinal silhouette is enlarged, unchanged. Increased interstitial markings are identified bilaterally, findings suggesting mild pulmonary vascul ar congestion. The lungs are otherwise clear. IMPRESSION: Mild pulmonary vascular congestion, without focal infiltrate or effusion. Reviewed, dictated and finalized at location A. [employer] OPERATOR
--- NOTE | 2025-01-10 13:01 | ED_ITS ---
HPI - SOB/Dyspnea General Chief Complaint: Shortness of Breath/Dyspnea <Rachel Sr PA-C - Last Filed: 01/12/25 17:48> Stated Complaint: chest congestion <Rachel Sr PA-C - Last Filed: 01/12/25 17:48> Time Seen by Provider: 01/10/25 13:01 <Rachel Sr PA-C - Last Filed: 01/12/25 17:48> Focused HPI: This is a 69 year old female that presents to the ER for cold symptoms. Reports cough, congestion. Ongoing over the last 3 days. Reports her sister visited and was recently ill as well. Reports chest tightness. Denies fevers. GENERAL: Well-appearing, well-nourished, and in no acute distress. HEAD: Normocephalic, atraumatic. CHEST: Clear to auscultation. ?No respiratory distress. HEART: Regular rate and rhythm.? NEURO: ?Alert and oriented x3. Patient screened in triage and initial orders placed.? ?Additional care and disposition to be based upon?diagnostic testing and treatment. <Rachel Sr PA-C - Last Filed: 01/12/25 17:48> Focused HPI: This is a 69 year old female that presents to the ER for cold symptoms. Reports cough, congestion. Ongoing over the last 3 days. Reports her sister visited and was recently ill as well. Reports chest tightness. Denies fevers. GENERAL: Well-appearing, well-nourished, and in no acute distress. HEAD: Normocephalic, atraumatic. CHEST: Diffuse wheezing on auscultation, no tachypnea, no accessory muscle use HEART: Regular rate and rhythm.? NEURO: ?Alert and oriented x3. Patient screened in triage and initial orders placed.? ?Additional care and disposition to be based upon?diagnostic testing and treatment. <Tucker Rees MD - Last Filed: 01/10/25 18:38> History of Present Illness HPI Narrative: Agree with the HPI above. Patient is from a skilled facility where she uses oxygen around the clock. Recent exposures RSV. Has a productive cough and some having congestion. Otherwise denies any chest pain, nausea, vomiting, abdominal pain or back pain. She states she has had some breathing treatments and improved but has not tried her nebulizer treatments at home. No recent steroid use. <Tucker Rees MD - Last Filed: 01/10/25 18:38> Related Data Home Medications: Home Medications ?Medication ?Instructions ?Recorded ?Confirmed ?Last Taken ?Type aspirin-sodium bicarbonate-citric ea PO PRN nausea 01/10/25 Unknown History acid 324 mg effervescent tablet bupropion HCl 150 mg tablet,12 hr 150 mg PO BID 01/10/25 01/10/25 Unknown History sustained-release (Wellbutrin SR) calcium carbonate (Antacid 500 mg PO BID 01/10/25 01/10/25 Unknown History (calcium carbonate)) meclizine 12.5 mg tablet 12.5 mg PO Q8-10H 01/10/25 01/10/25 Unknown History omeprazole 20 mg capsule,delayed 20 mg PO DAILY 01/10/25 01/10/25 Unknown History release ondansetron 4 mg disintegrating 4 mg PO Q6H 01/10/25 01/10/25 Unknown History tablet potassium chloride 20 mEq 20 meq PO DAILY 01/10/25 01/10/25 Unknown History tablet,extended release(part/cryst) <Rachel Sr PA-C - Last Filed: 01/12/25 17:48> Allergies/Adverse Reactions: Allergies Allergy/AdvReac Type Severity Reaction Status Date / Time Cephalosporins Allergy Mild Swelling Verified 01/10/25 16:24 citalopram Allergy Mild Hives Verified 01/10/25 16:24 latex Allergy Mild LOCALIZED Verified 01/10/25 16:24 RASH/ITCHING. Sulfa (Sulfonamide Allergy Mild Fever Verified 01/10/25 16:24 Antibiotics) triamterene Allergy Unknown unknown Verified 01/10/25 16:24 clarithromycin (From Biaxin) Allergy Fever and Verified 01/10/25 16:24 rash mold Allergy Unknown face Uncoded 01/10/25 16:24 swelling <Rachel Sr PA-C - Last Filed: 01/12/25 17:48> Review of Systems 2 Review of Systems: As reviewed above in HPI <Tucker Rees MD - Last Filed: 01/10/25 18:38> [facility] Past Medical History Medical History: Medical History Congestive heart failure Chronic obstructive pulmonary disease Essential tremor ABY (obstructive sleep apnea) Prediabetes Dyslipidemia Lymphedema of both lower extremities CHF (congestive heart failure) Right heart failure (~06/19/12) per [facility] AM record BMI 60.0-69.9, adult (~08/2014) FH ischemic heart disease Mother had bypass surgery @ 78 y/o Stopped smoking with greater than 30 pack year history stopped 1998 per 10/10/2011 [facility] record Impaired mobility and endurance (~04/01/13) electric w/c since 1999 per 10/10/2011 [facility] record Generalized osteoarthrosis, involving multiple sites (~05/2012) Unspecified urinary incontinence (~10/11/16) Depression (~06/19/12) History of endometritis (~1967) Chronic venous stasis dermatitis of both lower extremities (~1999) <Rachel Sr PA-C - Last Filed: 01/12/25 17:48> Surgical History Surgical History: Surgical History History of sleeve gastrectomy 2011 History of umbilical hernia repair 2007 S/P T&A (status post tonsillectomy and adenoidectomy) (~1973) S/P cholecystectomy (~2004) History of bariatric surgery (~01/08/12) per record: 09/26/2011: 330# prior to surgery @ [facility]: Dr. Stevo Davis History of hysterectomy for cancer (~1990) <Rachel Sr PA-C - Last Filed: 01/12/25 17:48> Family History Family History: Family History Mother Family history of heart disease in male family member before age 55 Depression Family history of diabetes mellitus in first degree relative Family history of malignant neoplasm of urinary bladder Family history of coronary artery disease Family history of chronic obstructive pulmonary disease Kidney malignancy Father Polio Esophageal cancer Other Diabetes mellitus Family history of cardiovascular disease <Rachel Sr PA-C - Last Filed: 01/12/25 17:48> Social History Social History: Social History Social History: Surrogate medical decision maker: Clay Gant, daughter. Code status: Smoking packs per day: 1 Smoking cigarettes per day: 20.0 Years smoked: 30 Smoking pack-years: 30.00 Smoking status: Former smoker Tobacco type: cigarettes Second hand tobacco smoke exposure: Yes (states once a month) Smoking end date: 12/01/00 Alcohol intake: never Substance use: never Substance use type: does not use Do You Feel Safe in your Home?: Yes Lack of Transportation: No Lack of Food: Sometimes True Current Housing: I Have Housing Concerned About Future Housing: No Difficulty Paying Gas/Electric Bills: No Difficulty Paying for Meds: No Currently Unemployed: No Education: High School Diploma/GED Difficulty w/ Childcare or Family Care: No Living arrangements: with family Additional living arrangements comments: Daughter Occupation/Education: retired Spiritual care concerns: No Agree to blood products: Yes <Rachel Sr PA-C - Last Filed: 01/12/25 17:48> Exam 2 Narrative: GENERAL: Morbidly obese, sitting in wheelchair, no tachypnea, coughing infrequently. HEAD: [Normocephalic, atraumatic.] EYES: [PERRLA and EOMI.] ENT: Nares clear, no rhinorrhea or epistaxis. Mucous membranes moist. NECK: Supple. CHEST: Diffuse wheezing on auscultation, no tachypnea or retractions. No accessory muscle use. Good air entry, infrequent coughing, slightly productive. HEART: [Regular rate and rhythm]. No murmur heard. [Normal peripheral pulses.] ABDOMEN: [Soft, nondistended], [nontender], [No rigidity or guarding] EXTREMITIES: Normal range of motion. 2+ pitting edema SKIN: Warm, dry, no rash. NEURO: [No focal deficits]. Alert and oriented [x3.] PSYCH: [Normal mood and affect.] <Tucker Rees MD - Last Filed: 01/10/25 18:38> Course Vital Signs Vital signs: Vital Signs Temperature 97.2 F L 01/10/25 11:34 Pulse Rate 60 01/10/25 11:34 Respiratory Rate 20 01/10/25 11:34 Blood Pressure 142/63 H 01/10/25 11:34 Pulse Oximetry 99 01/10/25 11:34 Temperature 97.2 F L 01/10/25 11:34 Pulse Rate 84 01/10/25 18:25 Respiratory Rate 18 01/10/25 18:25 Blood Pressure 170/55 H 01/10/25 18:25 Pulse Oximetry 100 01/10/25 18:25 Oxygen Delivery Nasal Cannula 01/10/25 16:33 Oxygen Flow Rate 4 01/10/25 16:33 <Rahcel Sr PA-C - Last Filed: 01/12/25 17:48> Vital Signs Temperature 97.2 F L 01/10/25 11:34 Pulse Rate 60 01/10/25 11:34 Respiratory Rate 20 01/10/25 11:34 Blood Pressure 142/63 H 01/10/25 11:34 Pulse Oximetry 99 01/10/25 11:34 Temperature 97.2 F L 01/10/25 11:34 Pulse Rate 84 01/10/25 18:25 Respiratory Rate 18 01/10/25 18:25 Blood Pressure 170/55 H 01/10/25 18:25 Pulse Oximetry 100 01/10/25 18:25 Oxygen Delivery Nasal Cannula 01/10/25 16:33 Oxygen Flow Rate 4 01/10/25 16:33 <Tucker Rees MD - Last Filed: 01/10/25 18:38> MDM - SOB/Dyspnea MDM Narrative Medical decision making narrative: 69-year-old female with history of morbid obesity, CHF, COPD on home oxygen. She presents from a [facility] facility for concerns of difficulty in breathing, congestion exposures RSV. She is otherwise not any acute distress, saturating 99-100% on 4 L nasal cannula. She is is 2-4 L at her facility. She has not been using her nebulizer treatments at the facility but received 1 in triage with significant improvement her symptoms. Not tachypneic but does have wheezing on auscultation. She was provided steroids, 1 hour of nebulized albuterol and ipratropium, workup was ordered including CBC, CMP, troponin, BNP, chest x-ray, EKG. Reassuring vital signs without any tachypnea, fever, hypoxia, significant blood pressure concerns. Workup shows no leukocytosis, hemoglobin 11.1, some baseline anemia at 12.7. Normal platelet count. Normal coagulation studies. Electrolytes largely within normal limits, chronic CO2 retention, better than baseline. Normal renal function, normal glucose. Normal LFTs. Negative troponin. Patient tested positive for respiratory syncytial virus but negative for COVID or influenza. Chest x-ray shows mild pulmonary vascular congestion but no focal infiltrates or effusion, no signs of pneumonia. EKG shows sinus rhythm, some sinus arrhythmia but no ST segment elevations, depressions or inversions. Overall nonischemic appearing EKG. Patient was re-evaluated several times and had clinical improvement states she feels much improved after nebulization treatments. At this time she felt comfortable going back to her facility on her home oxygen dose. She was given prescription for nebulized ipratropium which he does not have but does have albuterol at the facility. She has a working nebulizer that the staff has not set up for her in the room. Instructed to make sure she gets this to use as needed and she will be sent home with steroids, guaifenesin for the cough and congestion and strict return precautions which she verbalized understanding. She will continue taking her home medications including Lasix and return with any concerns at any time. <Tucker Rees MD - Last Filed: 01/10/25 18:38> Medical Records Attestation: I reviewed the patient's medical records. <Tucker Rees MD - Last Filed: 01/10/25 18:38> Lab Data Attestation: I reviewed the patient's lab results. <Tucker Rees MD - Last Filed: 01/10/25 18:38> Result diagrams: 01/10/25 13:37 01/10/25 13:37 <Rachel Sr PA-C - Last Filed: 01/12/25 17:48> Labs: Lab Results 01/10/25 Range/Units 13:37 WBC 6.5 (4.5-10.0) K/mm3 RBC 4.75 (4.2-5.4) M/mm3 Hgb 11.1 L (12.0-15.0) g/dL Hct 37.6 (37.0-47.0) % MCV 79.2 L (80-100) fl MCH 23.4 L (26-34) pg MCHC 29.5 L (32-36) g/dl RDW 16.1 H (11.5-14.5) % Plt Count 161 (150-375) k/mm3 MPV 11.4 H (7.4-10.4) fl Immature Gran % (Auto) 0.3 (0-0.5) % Neut % (Auto) 63.2 (45.5-73.1) % Lymph % (Auto) 22.0 (18.3-44.2) % [place] % (Auto) 10.1 H (2.6-8.5) % Eos % (Auto) 3.5 (0-4.4) % Baso % (Auto) 0.9 (0.2-1.2) % Lymph # (Auto) 1.43 (0.9-3.2) K/mm3 [place] # (Auto) 0.7 H (0.1-0.6) K/mm3 Eos # (Auto) 0.2 (0-0.3) K/mm3 Baso # (Auto) 0.1 (0.0-0.1) K/mm3 Abs Immat Gran (auto) 0.02 (0.00-0.031) K/mm3 Absolute Neuts (auto) 4.1 (1.3-6.7) K/mm3 Absolute Nucleated RBC 0.000 (0.0-0.012) K/mm3 Nucleated RBC % 0.0 (0.0-0.2) % Platelet Estimate Adequate (Adequate) Hypochromasia 1+ Anisocytosis 2+ Microcytosis 1+ (NORMAL) Schistocytes None seen PT 13.9 (11.1-14.7) Seconds INR 1.0 APTT 24.7 (22.3-36.8) Seconds Sodium 139 (137-145) mmol/L Potassium 4.3 (3.4-5.0) mmol/L Chloride 102 (98-107) mmol/L Carbon Dioxide 32 H (22-30) mmol/L Anion Gap 5 (4-12) mmol/L BUN 19 H D (7-17) mg/dL Creatinine 0.63 L (0.7-1.0) mg/dL Estim Creat Clear Calc Not Reportable Estimated GFR > 60 (59 - ) Glucose 91 (65-110) mg/dL Calcium 8.9 (8.4-10.2) mg/dL Total Bilirubin 0.5 (0.2-1.3) mg/dL AST 22 (14-36) U/L ALT 17 (6-35) U/L Alkaline Phosphatase 88 (38-126) U/L Troponin I < 0.012 (0.000-0.034) ng/mL NT-Pro-B Natriuret Pep 84 (19.9-100) pg/mL Total Protein 7.0 (6.3-8.2) g/dL Albumin 3.6 (3.5-5.1) g/dL TSH (Reflex) 0.426 L (0.465-4.68) uIU/mL Free T4 1.89 (0.78-2.19) ng/dL Total T3 1.08 (0.97-1.69) NG/ML Influenza A (RT-PCR) Negative (Negative) Influenza B (RT-PCR) Negative (Negative) RSV (RT-PCR) Positive A (Negative) SARS-CoV-2 RNA (RT-PCR) Negative (Negative) <Rachel Sr PA-C - Last Filed: 01/12/25 17:48> Lab Results 01/10/25 Range/Units 13:37 WBC 6.5 (4.5-10.0) K/mm3 RBC 4.75 (4.2-5.4) M/mm3 Hgb 11.1 L (12.0-15.0) g/dL Hct 37.6 (37.0-47.0) % MCV 79.2 L (80-100) fl MCH 23.4 L (26-34) pg MCHC 29.5 L (32-36) g/dl RDW 16.1 H (11.5-14.5) % Plt Count 161 (150-375) k/mm3 MPV 11.4 H (7.4-10.4) fl Immature Gran % (Auto) 0.3 (0-0.5) % Neut % (Auto) 63.2 (45.5-73.1) % Lymph % (Auto) 22.0 (18.3-44.2) % [place] % (Auto) 10.1 H (2.6-8.5) % Eos % (Auto) 3.5 (0-4.4) % Baso % (Auto) 0.9 (0.2-1.2) % Lymph # (Auto) 1.43 (0.9-3.2) K/mm3 [place] # (Auto) 0.7 H (0.1-0.6) K/mm3 Eos # (Auto) 0.2 (0-0.3) K/mm3 Baso # (Auto) 0.1 (0.0-0.1) K/mm3 Abs Immat Gran (auto) 0.02 (0.00-0.031) K/mm3 Absolute Neuts (auto) 4.1 (1.3-6.7) K/mm3 Absolute Nucleated RBC 0.000 (0.0-0.012) K/mm3 Nucleated RBC % 0.0 (0.0-0.2) % Platelet Estimate Adequate (Adequate) Hypochromasia 1+ Anisocytosis 2+ Microcytosis 1+ (NORMAL) Schistocytes None seen PT 13.9 (11.1-14.7) Seconds INR 1.0 APTT 24.7 (22.3-36.8) Seconds Sodium 139 (137-145) mmol/L Potassium 4.3 (3.4-5.0) mmol/L Chloride 102 (98-107) mmol/L Carbon Dioxide 32 H (22-30) mmol/L Anion Gap 5 (4-12) mmol/L BUN 19 H D (7-17) mg/dL Creatinine 0.63 L (0.7-1.0) mg/dL Estim Creat Clear Calc Not Reportable Estimated GFR > 60 (59 - ) Glucose 91 (65-110) mg/dL Calcium 8.9 (8.4-10.2) mg/dL Total Bilirubin 0.5 (0.2-1.3) mg/dL AST 22 (14-36) U/L ALT 17 (6-35) U/L Alkaline Phosphatase 88 (38-126) U/L Troponin I < 0.012 (0.000-0.034) ng/mL NT-Pro-B Natriuret Pep 84 (19.9-100) pg/mL Total Protein 7.0 (6.3-8.2) g/dL Albumin 3.6 (3.5-5.1) g/dL TSH (Reflex) 0.426 L (0.465-4.68) uIU/mL Free T4 1.89 (0.78-2.19) ng/dL Total T3 1.08 (0.97-1.69) NG/ML Influenza A (RT-PCR) Negative (Negative) Influenza B (RT-PCR) Negative (Negative) RSV (RT-PCR) Positive A (Negative) SARS-CoV-2 RNA (RT-PCR) Negative (Negative) <Tucker Rees MD - Last Filed: 01/10/25 18:38> Imaging Data Attestation: I personally reviewed and interpreted this imaging study as follows: < Tucker Rees MD - Last Filed: 01/10/25 18:38> My impression: Impressions Chest X-Ray 01/10/25 14:50 IMPRESSION: Mild pulmonary vascular congestion, without focal infiltrate or effusion. <Tucker Rees MD - Last Filed: 01/10/25 18:38> Critical Care Time Critical Care Time Critical Care Time: Yes <Tucker Rees MD - Last Filed: 01/10/25 18:38> Total Critical Care Time: 35 <Tucker Rees MD - Last Filed: 01/10/25 18:38> Discharge Plan Discharge Clinical Impression: Acute exacerbation of chronic obstructive pulmonary disease, Acute upper respiratory infection, History of CHF (congestive heart failure) Respiratory syncytial virus (RSV) Qualifiers: RSV infection type: unspecified Qualified Code(s): B33.8 - Other specified viral diseases <Rachel Sr PA-C - Last Filed: 01/12/25 17:48> Patient Disposition: NH Alf/Asst Living <Rachel Sr PA-C - Last Filed: 01/12/25 17:48> Condition: Stable <Rachel Sr PA-C - Last Filed: 01/12/25 17:48> Instructions: Antibiotic Form, COPD (Chronic Obstructive Pulmonary Disease) (DC), Wheezing (ED), RSV (Respiratory Syncytial Virus) Infection (ED) <Rachel Sr PA-C - Last Filed: 01/12/25 17:48> Additional Instructions: You tested positive for RSV and has a mild COPD exacerbation. We have sent her home with steroids and refills of your nebulization solutions. Follow- up with regular doctor and triple valve tester. Continue taking your cardiac medications including Lasix free of CHF. Return with any new or worsening concerns at any point. <Rachel Sr PA-C - Last Filed: 01/12/25 17:48> Patient Language: Vietnamese <Rachel Sr PA-C - Last Filed: 01/12/25 17:48> Prescriptions: New ipratropium bromide 0.02 % solution 2.5 ml inhalation Q6H PRN (Reason: shortness of breath or wheezing) Qty: 75 0RF albuterol sulfate 2.5 mg /3 mL (0.083 %) solution for nebulization 2.5 mg inhalation Q4H PRN (Reason: shortness of breath or wheezing) Qty: 90 0RF benzonatate 200 mg capsule 200 mg PO TID PRN (Reason: cough) Qty: 20 0RF prednisone 50 mg tablet 50 mg PO DAILY 5 Days Qty: 5 0RF guaifenesin [Mucinex] 1,200 mg tablet extended release 12hr 1,200 mg PO Q12H Qty: 20 0RF No Action albuterol sulfate 2.5 mg /3 mL (0.083 %) solution for nebulization 2.5 mg inhalation Q4-6H PRN (Reason: shortness of breath or wheezing) Qty: 180 0RF furosemide 40 mg Tablet 40 mg PO DAILY Qty: 0 0RF acetaminophen 325 mg Tablet 650 mg PO Q6H PRN (Reason: Pain Rated 5 or Less or Fever) Qty: 0 0RF polyethylene glycol 3350 [Miralax] 17 gram Powder In Packet 17 g PO DAILY Qty: 0 0RF bisacodyl 10 mg Suppository 10 mg RECTAL QAM PRN (Reason: constipation) Qty: 0 0RF bisacodyl [Laxative (bisacodyl)] 5 mg Tablet,Delayed Release (Dr/Ec) 5 mg PO BID Qty: 0 0RF [place] Saline Gel 1 applic intranasal Q4H PRN (Reason: NASAL CRUSTING/DRYNESS) Qty: 0 0RF hydrocodone-acetaminophen 5-325 mg Tablet 1 tablet PO Q8H PRN (Reason: Pain Rated 6 Or Greater) Qty: 20 0RF miconazole nitrate 2 % cream 1 applic topical BID Qty: 42.5 0RF aspirin-sod bicarb-citric acid 324 mg tablet, effervescent PO PRN bupropion HCl [Wellbutrin SR] 150 mg tablet sustained-release 12 hr 150 mg PO BID calcium carbonate [Antacid (calcium carbonate)] 200 mg calcium (500 mg) tablet,chewable 500 mg PO BID meclizine 12.5 mg tablet 12.5 mg PO Q8-10H omeprazole 20 mg capsule,delayed release(DR/EC) 20 mg PO DAILY ondansetron 4 mg tablet,disintegrating 4 mg PO Q6H potassium chloride 20 mEq tablet,ER particles/crystals 20 meq PO DAILY levothyroxine 88 mcg tablet 88 mcg PO DAILY Qty: 90 1RF levothyroxine 200 mcg tablet 200 mcg PO DAILY Qty: 90 1RF propranolol 20 mg tablet 20 mg PO BID Qty: 180 1RF <Rachel Sr PA-C - Last Filed: 01/12/25 17:48> Follow-up/Referrals: Souleymane Tyler MD [Primary Care Provider] - <Rachel Sr PA-C - Last Filed: 01/12/25 17:48> Stand Alone Forms: Prison Discharge <Rachel Sr PA-C - Last Filed: 01/12/25 17:48> Time of Disposition: 18:38 <Rachel Sr PA-C - Last Filed: 01/12/25 17:48> 18:38 <Tucker Rees MD - Last Filed: 01/10/25 18:38>
--- NOTE | 2025-01-10 13:02 | ECG_ITS ---
Test Date: 2025-01-10 13:43:10 Measurements Intervals Sandy Rate: 58 P: 85 VT: 194 QRS: -22 QRSD: 106 T: 58 QT: 442 QTc: 438 Interpretive Statements SINUS BRADYCARDIA WITH OCCASIONAL SUPRAVENTRICULAR PREMATURE COMPLEXES INCOMPLETE RIGHT BUNDLE BRANCH BLOCK LOW QRS VOLTAGE IN PRECORDIAL LEADS BASELINE ARTIFACT- I, II, III BORDERLINE ECG No previous ECG available for comparison Electronically Signed On 01-10-2025 13:47:19 RIG SUPERINTENDENT by Rojas Nava D.O.
[2025-01-10] MEDS: predniSONE 20 MG TABLET 40 MG PO (13:31)
[2025-01-10 13:52] LABS: Basophils Absolute Auto 0.1 K/mm3 (0.0-0.1); Basophils Percent Auto 0.9 % (0.2-1.2); Eosinophils Absolute Auto 0.2 K/mm3 (0-0.3); Eosinophils Percent Auto 3.5 % (0-4.4); Hematocrit 37.6 % (37.0-47.0); Hemoglobin 11.1 g/dL (12.0-15.0); Immature Granulocyte Absolute 0.02 K/mm3 (0.00-0.031); Immature Granulocyte Percent A 0.3 % (0-0.5); Lymphocytes Absolute Auto 1.43 K/mm3 (0.9-3.2); Mean Corpuscular HGB Conc 29.5 g/dl (32-36); Mean Corpuscular Hemoglobin 23.4 pg (26-34); Mean Corpuscular Volume 79.2 fl (80-100); Mean Platelet Volume 11.4 fl (7.4-10.4); Monocytes Absolute Auto 0.7 K/mm3 (0.1-0.6); Monocytes Percent Auto 10.1 % (2.6-8.5); Neutrophils Absolute Auto 4.1 K/mm3 (1.3-6.7); Neutrophils Percent Auto 63.2 % (45.5-73.1); Platelet Count Result 161 k/mm3 (150-375); Red Blood Count 4.75 M/mm3 (4.2-5.4); Red Cell Distribution Width 16.1 % (11.5-14.5); White Blood Count 6.5 K/mm3 (4.5-10.0)
[2025-01-10 14:05] LABS: Prothrombin Time 13.9 Seconds (11.1-14.7)
[2025-01-10 14:06] LABS: Partial Thromboplastin Time 24.7 Seconds (22.3-36.8)
[2025-01-10 14:08] LABS: Alanine Aminotransferase 17 U/L (6-35); Albumin Level 3.6 g/dL (3.5-5.1); Alkaline Phosphatase 88 U/L (38-126); Anion Gap 5 mmol/L (4-12); Aspartate Amino Transferase 22 U/L (14-36); Bilirubin,Total 0.5 mg/dL (0.2-1.3); Blood Urea Nitrogen 19 mg/dL (7-17); Calcium 8.9 mg/dL (8.4-10.2); Carbon Dioxide 32 mmol/L (22-30); Chloride 102 mmol/L (98-107); Estimated Glomerular Filt Rate > 60; Glucose 91 mg/dL (65-110); Potassium 4.3 mmol/L (3.4-5.0); Sodium 139 mmol/L (137-145)
[2025-01-10 14:18] LABS: Anisocytosis 2+; Hypochromasia 1+; Microcytosis 1+ (NORMAL); Platelet Estimate Adequate (Adequate); Schistocytes None Seen
[2025-01-10 14:19] LABS: Troponin I < 0.012 ng/mL (0.000-0.034)
[2025-01-10 14:28] LABS: Influenza A QL RT-PCR Negative (Negative); Influenza B QL RT-PCR Negative (Negative); RSV RNA, RT-PCR Positive (Negative); SARS-CoV-2 RNA PCR Negative (Negative)
[2025-01-10 15:49] LABS: Thyroid Stimulating Hormone Reflex 0.426 uIU/mL (0.465-4.68)
[2025-01-10 16:26] LABS: Free T4 Free Thyroxine Reflex 1.89 ng/dL (0.78-2.19)
[2025-01-10] MEDS: IPRATROPIUM 0.5 MG/ALBUTEROL SULFATE 2.5 MG AMPUL.NEB 3 ML INHALATION (16:28)
--- NOTE | 2025-01-10 16:34 | PCRCNOTE ---
Treatment delayed due to pt in waiting room when orders were placed . Pt in no respiratory distress or any SOB noted . Breath sounds clear t/o
[2025-01-10 16:46] LABS: NT Pro B Type Natriuretic Pept 84 pg/mL (19.9-100)
[2025-01-10 17:24] LABS: Total Triiodothyronine (T3) 1.08 NG/ML (0.97-1.69)
[2025-01-10] MEDS: ALBUTEROL SULFATE NEB 2.5 MG/3 ML INH 10 MG INHALATION (17:41)
[2025-01-10] MEDS: IPRATROPIUM BR 0.02% INH SOLN 0.5 MG/2.5 ML VIAL 1 MG INHALATION (17:42)
== END 2025-01-10 19:07 ==
PROVIDERS: Physician Assistant; Emergency Provider Student in an Organized Health Care Education/Training Program; PCP Family Medicine
DX: J06.9 Acute upper respiratory infection, unspecified (principal); J44.1 Chronic obstructive pulmonary disease with (acute) exacerbation; I50.9 Heart failure, unspecified; B97.4 Respiratory syncytial virus as the cause of diseases classified elsewhere; Z20.822 Contact with and (suspected) exposure to COVID-19; I89.0 Lymphedema, not elsewhere classified; I87.2 Venous insufficiency (chronic) (peripheral); E66.01 Morbid (severe) obesity due to excess calories; Z68.44 Body mass index [BMI] 60.0-69.9, adult; E78.5 Hyperlipidemia, unspecified; M19.90 Unspecified osteoarthritis, unspecified site; G47.33 Obstructive sleep apnea (adult) (pediatric); F32.A Depression, unspecified; Z99.81 Dependence on supplemental oxygen; Z79.899 Other long term (current) drug therapy; R00.1 Bradycardia, unspecified; I49.1 Atrial premature depolarization; I45.10 Unspecified right bundle-branch block
CPT/HCPCS: 36415; 71045; 80053; 83880; 84439; 84443; 84480; 84484; 85025; 85610; 85730; 87637; 93005; 94640; 99284; J7512

== ENCOUNTER 2025-10-05 10:00 | Outpatient (RCR) | payer MEDICARE, MEDICAID, SELFPAY ==
--- NOTE | 2025-07-12 10:35 | WNDPHOTO ---
PHOTO ONLY - See Nursing Notes and/ or assessments for documentation.
--- NOTE | 2025-07-12 11:50 | OPREHPOC ---
Outpatient Therapy Plan of Care This is a Multidisciplinary Plan of Care that may contain components documented by all disciplines (PT, OT, and ST.) PT Problem 1 PT Problem #1 Knowledge Deficit PT Goal 1 Goal / Goal Update 1*independent with LE exercise/ HEP 2* pt voice understanding of lymphedema management and skin care, able to instruct helpers on how to assist her Target Visit 20 PT Problem 2 PT Problem #2 Impaired Strength PT Goal 1 Goal / Goal Update increase LE strength to improve transfer and mobility skills 1* pt transfer supine to sit independently 2* gross strength of L hip and knee 4-/5 Target Visit 20 PT Problem 3 PT Problem #3 Impaired Lymphatic System PT Goal 1 Goal / Goal Update improve lymphatic system to decrease size of L leg and improve skin integrity 1* circumferential measurement to 60 cm: 990 cm 2* no papillomas over lower leg 3* no papillomas over medial thigh 4* visible malleoli 5* slight redness over lower leg 6* slight redness over medial thigh 7* no firmness of tissue to touch, over lower leg 8* no firmness of tissu to touch, over medial thigh Target Visit 20
--- NOTE | 2025-07-12 11:50 | PTOPEVAL1 ---
Assessment and note entered by Sparkle Jorge, PT Evaluation Information Assessment Status Evaluation ICD-10 Condition Codes (PT) Lymphedema I89.0 Onset past year Subjective Information chronic lymphedema in both legs; moved from [place] to an assisted living/[facility] about 1 year ago, food different and started gaining more weight; legs more swollen, with blisters and hurting more; use motorized scooter for mobility, no walking, due to pain in legs and chronic pain; independent with transfer motorized scooter to/from hospital bed; independent with dressing, have assist from facility, for bathing- back, feet, legs and hair; Reported Pain Level Pain Score 8: Self Report Additional Pain Score Comments pain range in the past week for legs: 6-8/10; issues with chronic pain in legs-- neuropathy, fibromyalgia, arthritis all over body pain; take pain pills, and getting to where they are not helping her pain; Assessment PT Clinical Summary Rosalinda has the diagnosis of bilateral LE lymphedema . She has been here in the past for treatment ~ 10 years ago. Her leg size has increased and more skin changes. She is not walking and uses the motorized w/c for mobility. LE functional scale rating of 90% limited with mobility. She is using velcro garments for lower legs and has a wound that is healing with nursing care over R lower leg. She resides in an assisted living facility and has assist with dressing her lower legs and bathing. Medical history includes: diabetes, HTN, COPD, CHF, OA, fibromyalgia, hernia surgery, gastric bypass surgery, bilateral ankle fractures non surgical, hypothyroid, cervical cancer with hysterectomy and obesity/ BMI 60. With the evaluation: L LE with tissue changes- redness, firmness and papillomas; decreased strength and ROM of hips and knees; decreased mobility with supine/sit transfers. R leg was not assessed at evaluation time, with treat the L LE and then progress to R LE. Skilled PT services are indicated for complete decongestive therapy--manual lymph drainage, multi layer compression wraps, intermittent compression pump, LE exercises, education for self care and compression garments. Plan of Care Interventions Intermittent Compression Pump,Lymphedema Compression Wraps,Manual Lymph Drainage,Neuro Re- education,Patient/Caregiver Education,Therapeutic Activities,Therapeutic Exercise PT Services Indicated Yes Treatment Frequency and 3x/wk for 20 visits; will reassess at #10 visit Duration for insurance purposes These treatments will address the objective and functional deficits as defined above. The patient will be advanced safely and appropriately in order for the patient to progress towards his/her prior level of function. Additional exercises will be introduced and as well as a comprehensive home exercise program upon discharge, if needed, ?to ensure carryover of functional gains achieved in the clinic. This treatment plan has been reviewed and agreement upon by the patient.
--- NOTE | 2025-09-01 10:26 | PCPTNOTE ---
pt called and canceled today's appt due to illness.
--- NOTE | 2025-09-12 13:22 | PCPTNOTE ---
pt did not show for today's appt. I called her, she had her appt as being tomorrow. Reminded her of the next appt on Fri.
--- NOTE | 2025-09-14 11:39 | PCPTNOTE ---
pt called and canceled today's appt due to have another appt.
--- NOTE | 2025-09-19 09:22 | WNDPHOTO ---
PHOTO ONLY - See Nursing Notes and/ or assessments for documentation.
--- NOTE | 2025-09-19 09:59 | OPREHPOC ---
Outpatient Therapy Plan of Care This is a Multidisciplinary Plan of Care that may contain components documented by all disciplines (PT, OT, and ST.) PT Problem 1 PT Problem #1 Knowledge Deficit PT Goal 1 Goal / Goal Update 1*independent with LE exercise/ HEP 2* pt voice understanding of lymphedema management and skin care, able to instruct helpers on how to assist her 09-19-25 progress goals met continue to progress education Target Visit 21 PT Problem 2 PT Problem #2 Impaired Strength PT Goal 1 Goal / Goal Update increase LE strength to improve transfer and mobility skills 1* pt transfer supine to sit independently 2* gross strength of L hip and knee 4-/5 09-19-25 progress goal 1 met continue towards goal 2 Target Visit 21 PT Problem 3 PT Problem #3 Impaired Lymphatic System PT Goal 1 Goal / Goal Update improve lymphatic system to decrease size of L leg and improve skin integrity 1* circumferential measurement to 60 cm: 990 cm 2* no papillomas over lower leg 3* no papillomas over medial thigh 4* visible malleoli 5* slight redness over lower leg 6* slight redness over medial thigh 7* no firmness of tissue to touch, over lower leg 8* no firmness of tissue to touch, over medial thigh 09-19-25 progress goals 4,5,6 met; improved with #1 to 996 cm continue towards goals Target Visit 21
--- NOTE | 2025-09-19 09:59 | PTOPPROG ---
Assessment and note entered by Sparkle Jorge, PT Assessment Status Progress ICD-10 Condition Codes (PT) Lymphedema I89.0 Onset past year Subjective Information legs are much better, not as heavy and L leg is really smaller; still have leg and hip pain; Assessment PT Clinical Summary Rosalinda has received 11 PT sessions for treatment of bilateral LE lymphedema. Her L leg has been receiving compression wraps with good reduction and improved skin integrity: Circumferential measurement has decreased by 59.5 cm; decreased redness & less fibrotic tissue over medial thigh and lower leg; malleoli are visible. She continues to have edema over dorsum of foot. She has been measured for L custom made compression garment for lower leg and night garment for entire leg. The goals were partially met. Continue treatment and wraps for L leg, then when garment received, will initiate the compression wraps for R LE. Plan of Care Interventions Intermittent Compression Pump,Lymphedema Compression Wraps,Manual Lymph Drainage,Neuro Re- education,Patient/Caregiver Education,Therapeutic Activities,Therapeutic Exercise PT Services Indicated Yes Treatment Frequency and 3x/wk for 10 visits Duration These treatments will address the objective and functional deficits as defined above. The patient will be advanced safely and appropriately in order for the patient to progress towards his/her prior level of function. Additional exercises will be introduced and as well as a comprehensive home exercise program upon discharge, if needed, ?to ensure carryover of functional gains achieved in the clinic. This treatment plan has been reviewed and agreement upon by the patient.
--- NOTE | 2025-09-21 08:30 | PCPTNOTE ---
Justification note for L LE: custom knee high and nighttime entire leg garment: 09-21-25 Ms. Gant requires a custom knee high Mediven 550 garment, class 2 compression, and night time profile garment: to manage her stage 2 lymphedema with fibrotic tissue and papillomas over lower leg and medial thigh. Her leg is an abnormal shape, that would not fit into an off the shelf garment. In the past, she has used custom garments with good success. The wall stability of the circular knit garment in not adequate to manage her lymphedema. She will require a flat knit product. The closed toe is needed due to dorsum of foot and toe swelling. The Y knitting perla is needed over her ankle due to the shape of her leg and decrease the tightness and risk of skin break down over the anterior ankle. The silicone top band is needed to maintain the position of the garment and prevent slippage during the day. The nighttime garment needs the oversleeve for additional compression to manage her fibrotic tissue and leg size, with the non skid sole for safety with transfer in/out bed. Rosalinda is motivated and is willing to use the garments to manage her chronic condition. Please contact me if there are any other questions or concerns about Mrs. Gant. Sparkle Jorge PT, [place], [place]
--- NOTE | 2025-09-30 09:31 | PCPTNOTE ---
pt called and canceled today's appointment due to illness.
--- NOTE | 2025-10-07 10:01 | PCPTNOTE ---
pt called and canceled due to not having any transportation.
--- NOTE | 2025-10-10 14:41 | PCPTNOTE ---
pt called and canceled today's appt due to no transportation.
== END 2025-10-10 23:59 | disposition home or self-care (01) ==
LOC: ANHPT 10:00
PROVIDERS: PCP Family Medicine; Visit Provider Registered Nurse
DX: I89.0 Lymphedema, not elsewhere classified (principal)
CPT/HCPCS: 29581; 97016; 97140; 97161; 97530